=== PATIENT | female | born 1995 | race American Indian/Alaskan Native ===

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

== ENCOUNTER 2017-05-25 12:58 | Emergency (ER) | payer SELFPAY ==
[2017-05-25 14:07] VITALS: BP 118/75
[2017-05-25 15:47] LABS: Bacteria,Urine 1+ /HPF (Negative); Bilirubin,Urine NEG (Negative); Blood,Urine NEG (Negative); Ketones,Urine NEG (Negative); Leukocyte Esterase,Urine NEG (Negative); Mucus,Urine 3+ /HPF; Nitrite,Urine NEG (Negative); Protein,Urine <15 mg/dL mg/dL (Negative)
[2017-05-25] MEDS ORDERED: TRIPLE ANTIBIOTIC TP ONE (15:48)
[2017-05-25] MEDS ORDERED: ZOFRAN ODT PO ONE (16:21)
--- NOTE | 2017-05-25 16:21 | Emergency Department Report ---
HPI - General Chief Complaint: Abdominal Pain Time Seen by Provider: 05/25/17 16:13 - HPI HPI: This is a 21-year-old female with no prior history of present's ED complaining of abdominal cramping 3 days. Patient states abdominal pain is cramping in nature intermittently throughout the day. She denies radiation anywhere else. She states pain is localized to upper abdomen. Patient states she is able to tolerate foods and fluids. Patient is a history of irregular cycles. She denies vaginal bleeding vaginal discharge, fever, chest pain, dizziness or headache ED Past Medical Hx - Past Medical History Previous Medical History?: Yes Hx Hypertension: No Hx Congestive Heart Failure: No Hx Diabetes: No Hx Deep Vein Thrombosis: No Hx Renal Disease: No Hx Sickle Cell Disease: No Hx Seizures: No Hx Asthma: No Hx COPD: No Hx HIV: No Additional medical history: 37 weeks 04-13-2014 - Surgical History Past Surgical History?: No - Social History Smoking Status: Current Some Day Smoker Substance Use Type: Marijuana - Medications Home Medications: Home Medications Medication Instructions Recorded Confirmed Last Taken Type Ondansetron [Zofran ODT TAB] 8 mg PO TID #20 tab.rapdis 05/25/17 Unknown Rx Sulfamethoxazole/Trimethoprim 1 each PO BID #14 tablet 05/25/17 Unknown Rx [Bactrim DS TAB] ED Review of Systems ROS: Stated complaint: ABDOMINAL PAIN Other details as noted in HPI Constitutional: denies: chills, fever Eyes: denies: eye pain, eye discharge, vision change ENT: denies: ear pain, throat pain Respiratory: denies: cough, shortness of breath, wheezing Cardiovascular: denies: chest pain, palpitations Endocrine: no symptoms reported Gastrointestinal: denies: abdominal pain, nausea, diarrhea Genitourinary: denies: urgency, dysuria, discharge Musculoskeletal: denies: back pain, joint swelling, arthralgia Skin: denies: rash, lesions Neurological: denies: headache, weakness, paresthesias Psychiatric: denies: anxiety, depression Hematological/Lymphatic: denies: easy bleeding, easy bruising Physical Exam - Physical Exam Vital Signs: Vital Signs 05/25/17 14:03 Temperature 98.1 F Pulse Rate 73 Respiratory 18 Rate Blood Pressure 118/75 O2 Sat by Pulse 100 Oximetry Physical Exam: GENERAL: Alert and oriented x3, no apparent distress, Normal Gait, atraumatic. HEAD: Head is normocephalic and a-traumatic. MOUTH:Mouth is well hydrated and without lesions. Tonsils nonerythematous or swollen, Uvula midline, Tongue not elevated. Mucous membranes are moist. Posterior pharynx clear, no exudate or lesions. Patent airways. LUNGS: Symetrical with respiration, No wheezing, no rales or crackles, CTAB. HEART: S1, S2 present, regular rate and rhythm without murmur, no rubs, no gallops. Non tender to palpation ABDOMEN: No organomegaly was noted,Positive bowel sounds, soft, and non- distended. . Nontender to palpation on all Quadrants, NO CVA tenderness. BACK: Full range of motion, no spinal tenderness, nontender to palpation. EXTREMITIES/MUSCULOSKELETAL: No cyanosis, clubbing, rash, lesions or edema. Full ROM bilaterally. UE/LE Pulses 2+ bilaterally. NEUROLOGIC: The patient is cooperative with no focal neurologic deficits. SKIN: Warm and dry, No lesions, No ulceration or induration present. ED Course Vital Signs 05/25/17 14:03 Temperature 98.1 F Pulse Rate 73 Respiratory 18 Rate Blood Pressure 118/75 O2 Sat by Pulse 100 Oximetry ED Medical Decision Making - Medical Decision Making Patient is a 21-year-old female presents with UTI ED course: Patient received Zofran for nausea and and ED Urinalysis and urine test done urinalysis shows positive for bacteria and urine test negative sign discussed findings with the patient. Discussed the patient will follow up with primary care physician discussion patient to take antibiotics medication as prescribed. Discussed increased fluids, eat appropriately. Patient is in no acute distress. Critical care attestation.: If time is entered above; I have spent that time in minutes in the direct care of this critically ill patient, excluding procedure time. ED Disposition Clinical Impression: UTI (urinary tract infection) Qualifiers: Urinary tract infection type: acute cystitis Hematuria presence: without hematuria Qualified Code(s): N30.00 - Acute cystitis without hematuria Disposition: TO HOME OR SELFCARE Is pt being admited?: No Does the pt Need Aspirin: No Condition: Stable Instructions: Urinary Tract Infection in Women (ED), Abdominal Pain (ED) Prescriptions: Ondansetron [Zofran ODT TAB] 8 mg PO TID #20 tab.rapdis Sulfamethoxazole/Trimethoprim [Bactrim DS TAB] 1 each PO BID #14 tablet Referrals: PRIMARY CARE, [Primary Care Provider] - 3-5 Days LULI BOOTH MD [Referring] - 3-5 Days [facility] [Outside] - 3-5 Days [facility] [Outside] - 3-5 Days Forms: Accompanied Note, Work/School Release Form(ED) Time of Disposition: 16:37
== END 2017-05-25 16:56 | disposition home or self-care (01) ==
LOC: ED 12:58
DX: N30.00 Acute cystitis without hematuria (principal); F17.200 Nicotine dependence, unspecified, uncomplicated; F12.10 Cannabis abuse, uncomplicated
CPT/HCPCS: 36415; 81001; 84702; A6250; Q0162

== ENCOUNTER 2018-02-23 13:44 | Outpatient (CLI) | payer OTHER ==
[2018-02-23 14:22] VITALS: BP 101/64
== END 2018-02-23 15:00 | disposition home or self-care (01) ==
LOC: TRG 13:44
PROVIDERS: ATTEND Obstetrics & Gynecology
DX: O47.1 False labor at or after 37 completed weeks of gestation (principal); Z3A.37 37 weeks gestation of pregnancy
CPT/HCPCS: 59025

== ENCOUNTER 2018-03-16 14:43 | Outpatient (CLI) | payer OTHER ==
[2018-03-16 15:02] VITALS: BP 115/66
--- NOTE | 2018-03-16 17:09 | Ultrasound Report ---
FINAL REPORT EXAM: US OB BPP WO NON-STRESS HISTORY: WELL BEING, ANY TECHNIQUE: Ultrasound biophysical profile PRIORS: None. FINDINGS: Single live intrauterine gestation is present with heart rate of 136 beats per minute Biophysical profile was performed respiratory motion 2 Body movement 2 tone 2 Amniotic fluid volume 2 Total 04/12 The amniotic fluid index is 11 centimeters within normal limits. Deepest pocket measurement 4.09 centimeters Impression Normal biophysical profile 04/12
--- NOTE | 2018-03-16 17:11 | Ultrasound Report ---
FINAL REPORT EXAM: US OB LIMITED HISTORY: WELL BEING, ANY TECHNIQUE: . Ultrasound obstetrical transabdominal limited PRIORS: Comparison March 16, 2018 FINDINGS: Single live intrauterine gestation present in cephalic presentation. cardiac activity present with heart rate of 136 beats per minute. Amniotic fluid volume is within normal limits. Deepest pocket measurement 4.09 centimeters with amniotic fluid index of 11.0 centimeters IMPRESSION: Single live intrauterine gestation in cephalic presentation Normal amniotic fluid index
== END 2018-03-16 16:24 | disposition home or self-care (01) ==
LOC: TRG 14:43
PROVIDERS: ATTEND Obstetrics & Gynecology
DX: O47.1 False labor at or after 37 completed weeks of gestation (principal); Z3A.40 40 weeks gestation of pregnancy
CPT/HCPCS: 59025; 76815; 76819

== ENCOUNTER 2018-03-18 19:11 | Outpatient (CLI) | payer OTHER | END 2018-03-18 21:42 | disposition home or self-care (01) | LOC: TRG 19:11 | PROVIDERS: ATTEND Obstetrics & Gynecology | DX: O47.1 False labor at or after 37 completed weeks of gestation (principal); Z3A.40 40 weeks gestation of pregnancy | CPT/HCPCS: 59025 ==

== ENCOUNTER 2018-03-22 23:56 | Outpatient (CLI) | payer OTHER ==
[2018-03-23 00:11] VITALS: BP 109/64
--- NOTE | 2018-03-23 02:30 | Ultrasound Report ---
FINAL REPORT PROCEDURE: US OB BPP WO NON-STRESS TECHNIQUE: Sonographic evaluation for breathing, movement, tone, and amniotic fluid volume was performed. CPT 74853 HISTORY: well being. COMPARISON: Limited ultrasound dated same day and time. Ultrasounds dated 03/16/2018. FINDINGS: LMP: 06/16/2017. Clinical age: 40 weeks 0 days. EDC: 03/23/2018. heart rate: 132 beats per minute. Amniotic fluid volume: Normal-score 2. At least one vertical pocket > 2 cm or more in vertical axis. breathing: Normal-score 2. movement: Normal-score 2. tone: Normal. Score: 8 of 8. IMPRESSION: Normal biophysical profile.
--- NOTE | 2018-03-23 02:34 | Ultrasound Report ---
FINAL REPORT PROCEDURE: US OB LIMITED TECHNIQUE: Real-time limited sonographic examination was performed for evaluation of position, heartbeat, fluid volume with image documentation. CPT 39234 HISTORY: well being. COMPARISON: Please refer to biophysical profile ultrasound dated same day and time. Reference was also made to ultrasounds dated 03/16/2018. FINDINGS: MATERNAL LMP: 06/16/2017. Clinical age: 40 weeks 0 days. EDC: 03/23/2018. FETUS IUP: Single living intrauterine . Position: Was cephalic on prior study from 03/16/2018. Amniotic fluid volume: 13.3 cm. Heart rate and rhythm: 132 BPM, Regular . IMPRESSION: Single intrauterine , clinically 40 weeks 0 days with EDC of 03/23/2018. Cephalic presentation on study from 03/16/2018. Normal ANY. Heart rate 132 beats per minute.
== END 2018-03-23 01:46 | disposition home or self-care (01) ==
LOC: TRG 23:56
PROVIDERS: ATTEND Obstetrics & Gynecology
DX: O47.1 False labor at or after 37 completed weeks of gestation (principal); Z3A.40 40 weeks gestation of pregnancy
CPT/HCPCS: 59025; 76815; 76819

== ENCOUNTER 2018-03-25 12:55 | Inpatient (IN) | payer OTHER ==
[2018-03-25] MEDS ORDERED: LACTATED RINGERS 1,000 ML ONE (13:31)
[2018-03-25] MEDS ORDERED: ePHEDrine SULFATE IV PRN (14:03)
[2018-03-25] MEDS ORDERED: BRETHINE SUB-Q PRN (14:03)
--- NOTE | 2018-03-25 14:11 | History and Physical Report ---
History of Present Illness Date of examination: 03/25/18 Date of admission: 05/26/18 Chief complaint: Patient presents to L&D in active labor. History of present illness: 22 year old female presents to L&D in active labor. . EDC 03/23/18 by patient report. No records are available. Pt. states she received care at [facility]. She denies any complications with this . She denies any health problems or history of surgeries. She has had 2 previous vaginal deliveries. Patient states she takes a vitamin. Patient denies any allergies. US performed today due to no records available; term gestation reported by US today (38 weeks, 3 days with EDC of 04/05/18). labs redrawn today. 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 denies: smoking, alcohol abuse, IV drug use - Obstetrical History Expected Date of Delivery: 03/23/18 Actual Gestation: 40 Week(s) 2 Day(s) : 3 Para: 2 Hx # Term Pregnancies: 3 Number of Pregnancies: 0 Spontaneous Abortions: 0 Induced : 0 Number of Living Children: 2 Medications and Allergies Allergies Allergy/AdvReac Type Severity Reaction Status Date / Time No Known Allergies Allergy Verified 01/26/16 15:52 Home Medications Medication Instructions Recorded Confirmed Last Taken Type No Known Home Medications [No 03/16/18 03/25/18 Unknown History Reported Home Medications] Active Meds: Active Medications Ephedrine Sulfate (Ephedrine Sulfate) 10 mg IV Q2M PRN PRN Reason: Hypotension Fentanyl (Sublimaze) 100 mcg IV Q2H PRN PRN Reason: Labor Pain Ampicillin Sodium (Polycillin/Ns 2 Gm/100 Ml) 2 gm in 100 mls @ 100 mls/hr IV ONCE ONE; Protocol Stop: 03/25/18 15:59 Lactated Ringer's (Lactated Ringers) 1,000 mls @ 125 mls/hr IV DIRECT MANNY Oxytocin/Sodium Chloride (Pitocin/Ns 20 Unit/1000ml Drip) 20 units in 1,000 mls @ 125 mls/hr IV DIRECT MANNY Terbutaline Sulfate (Brethine) 0.25 mg SUB-Q ONCE PRN PRN Reason: Hyperstimulation/Hypertonicity Review of Systems All systems: negative (labor) - Vital Signs Vital signs: Vital Signs Pulse BP 110 H 123/77 03/25/18 13:13 03/25/18 13:13 Temp Pulse Resp BP Pulse Ox 92 H 123/77 99 03/25/18 14:11 03/25/18 13:13 03/25/18 14:11 - Physical Exam Breasts: Positive: deferred Cardiovascular: Regular rate, Normal S1, Normal S2 Lungs: Positive: Clear to auscultation Abdomen: Positive: normal appearance, soft. Negative: distention, tenderness, guarding, rigidity Genitourinary (Female): Positive: normal external genitalia, normal perenium. Negative: perineal/vulvar lesions Uterus: Positive: enlarged. Negative: tender Anus/Rectum: Positive: normal perianal skin Extremities: Positive: normal. Negative: tenderness, edema - Obstetrical Uterine Contraction Monitor Mode: External Cervical Dilatation: 5 Cervical Effacement Percentage: 80 station: -2 Uterine Contraction Pattern: Regular Uterine Contraction Intensity: Moderate Results Result Diagrams: 03/25/18 14:00 All other labs normal. Assessment and Plan A: at 40 weeks, 2 days gestation. GBS unknown. Labor. P: Admit. GBS prophylaxis. Anticipate .
[2018-03-25 14:38] LABS: Hematocrit 28.2 % (30.3-42.9); Hemoglobin 9.3 gm/dl (10.1-14.3); Mean Corpuscular HGB Conc 33 % (30-34); Mean Corpuscular Hemoglobin 27 pg (28-32); Mean Corpuscular Volume 82 fl (79-97); Platelet Count 204 K/mm3 (140-440); Red Blood Count 3.43 M/mm3 (3.65-5.03); Red Cell Distribution Width 15.4 % (13.2-15.2)
[2018-03-25] MEDS ORDERED: POLYCILLIN/NS 2 GM/100 ML 2 GM/100 ML BAG IV ONE (15:00)
[2018-03-25] MEDS: SUBLIMAZE IV PRN ×2 (15:58→19:52)
[2018-03-25] MEDS: LACTATED RINGERS 1,000 ML IV SCH ×2 (15:58→23:32)
[2018-03-25 18:26] LABS: Rubella IgG Antibody Immune (Immune)
[2018-03-25 18:29] LABS: Hepatitis C Virus Antibody Non-Reactive (NonReactive)
--- NOTE | 2018-03-25 19:50 | Ultrasound Report ---
FINAL REPORT EXAM: US OB FOLLOW UP HISTORY: Confirm gestational age COMPARISON: March 16, 2018. TECHNIQUE: Several real-time grayscale and color Doppler images were obtained. FINDINGS: Single live IUP. Estimated gestational age 38 weeks 3 days. Estimated delivery date April 05, 2018. On prior exam, estimated delivery date March 23, 2018. presentation cephalic. Placenta location right lateral. No placenta previa. heart rate 140 beats per minute. Estimated weight 3429 grams. BPD 9.6 centimeters 39 weeks 2 days. Head circumference 33.8 centimeters 38 weeks 6 days. Abdominal circumference 34.1 centimeters 38 weeks 0 days. Femoral length 7.4 centimeters 37 weeks 4 days. ANY 7.2 centimeters within normal limits. anatomic survey not performed. Limited evaluation of structures due to late gestational age. IMPRESSION: Single live IUP. Estimated gestational age 38 weeks 3 days. Estimated delivery date April 05, 2018. On prior exam, estimated delivery date March 23, 2018. No gross abnormality demonstrated. anatomic survey not performed. Limited evaluation of structures due to late gestational age.
[2018-03-25] MEDS: AMPICILLIN/NS 1 GM/50 ML 1 GM/50 ML BAG IV SCH ×2 (19:52→23:38)
[2018-03-25] MEDS ORDERED: PITOCin/NS 30 UNIT/500ML 30 UNITS/500 ML BAG IV SCH (22:00)
[2018-03-26] MEDS: SUBLIMAZE IV PRN (02:17)
[2018-03-26] MEDS: PITOCin/NS 20 UNIT/1000ML DRIP 20 UNITS/1,000 ML BAG IV SCH ×2 (03:40→07:21)
[2018-03-26] MEDS ORDERED: LANSINOH TP PRN (03:48)
[2018-03-26] MEDS ORDERED: TYLENOL PO PRN (03:48)
[2018-03-26] MEDS ORDERED: DULCOLAX PR PRN (03:48)
[2018-03-26] MEDS ORDERED: TUCKS PAD TP PRN (03:48)
[2018-03-26] MEDS ORDERED: MILK OF MAGNESIA PO PRN (03:48)
--- NOTE | 2018-03-26 03:59 | Procedure Note ---
OB Delivery Note - Delivery Date of Delivery: 03/26/18 Surgeon: YAA PACHECO Estimated blood loss: 200cc - Vaginal Delivery presentation: vertex Delivery position: OA Intrapartum events: meconium Delivery induction: none Delivery augmentation: rupture of membranes, pitocin Delivery monitor: external FHT, external uterine Route of delivery: Delivery placenta: spontaneous Delivery cord: nuchal cord Episiotomy: none Delivery laceration: none Anesthesia: none Delivery comments: of liveborn female weighing 7 lbs. 1 oz. with apgars of 8/9. Meconium stained amniotic fluid. Baby taken immediately to radiant warmer after for suctioning of meconium, then promptly returned to mom's chest for skin to skin. Spontaneous cry and respirations. Spontaneous delivery of intact placenta and membranes by obando mechanism. EBL 200 ml. Pitocin to IV fluids after delivery of placenta. No lacerations noted. Fundus firm and midline. Vaginal sweep negative. Sponge count correct.
[2018-03-26] MEDS ORDERED: SODIUM CHLORIDE FLUSH SYRINGE 10 ML IV PRN (04:00)
[2018-03-26] MEDS: MOTRIN PO SCH ×4 (05:53→23:36)
[2018-03-26] MEDS ORDERED: NORCO 5/325 PO PRN (09:40)
--- NOTE | 2018-03-26 09:40 | Progress Note ---
Assessment and Plan A: day of delivery. Afterbirth cramping. P: Anticipate discharge tomorrow afternoon or Tuesday morning. Subjective - Subjective Date of service: 03/26/18 Principal diagnosis: day of delivery S/P Interval history: day of delivery. Doing well. Patient reports small amount of lochia. Voiding without difficulty. Ambulating well. Tolerating a regular diet. Patient denies headache, cough, shortness of breath, chest pain, leg pain, or heavy bleeding. She reports afterbirth cramping. Patient reports: appetite normal, voiding normally, flatus, ambulating normally [place]: doing well Objective - Vital Signs Latest vital signs: Vital Signs Temp Pulse Resp BP BP Pulse Ox 03/26/18 06:50 77 104/59 03/26/18 05:49 82 125/66 03/26/18 04:47 86 146/66 03/26/18 04:31 81 124/64 03/26/18 04:16 93 H 127/58 03/26/18 04:01 89 125/59 03/26/18 03:46 101 H 137/65 03/26/18 00:25 106 H 122/63 03/25/18 23:37 100 H 130/60 03/25/18 22:17 108 H 129/73 03/25/18 19:51 104 H 119/72 03/25/18 19:46 98.8 F 104 H 18 119/72 03/25/18 15:21 103 H 99 03/25/18 15:16 97 H 99 03/25/18 15:11 101 H 100 03/25/18 15:06 97 H 99 03/25/18 15:01 100 H 99 03/25/18 14:56 92 H 99 03/25/18 14:51 101 H 100 03/25/18 14:46 94 H 99 03/25/18 14:41 87 99 03/25/18 14:36 95 H 99 03/25/18 14:31 98 H 100 03/25/18 14:26 98 H 99 03/25/18 14:21 94 H 99 03/25/18 14:16 93 H 99 03/25/18 14:11 92 H 99 03/25/18 14:06 91 H 99 03/25/18 14:01 100 H 99 03/25/18 13:56 97 H 98 03/25/18 13:51 106 H 99 03/25/18 13:46 106 H 99 03/25/18 13:41 100 H 99 03/25/18 13:13 110 H 123/77 Intake and Output 03/25/18 03/26/18 03/26/18 23:59 07:59 15:59 Intake Total 997.700 462.817 Balance 997.700 462.817 Intake: IV 997.700 462.817 AMPICILLIN/NS 1 GM/50 ML 50 1 gm In 50 ml @ 100 mls/ hr IV Q4HR MANNY Rx#: [id number] Lactated Ringers 1,000 ml 945.833 @ 125 mls/hr IV DIRECT MANNY Rx#:[id number] PITOCin/NS 20 UNIT/1000ML 460.417 DRIP 20 units In 1,000 ml @ 125 mls/hr IV DIRECT MANNY Rx#:[id number] PITOCin/NS 30 UNIT/500ML 1.867 2.4 30 units In 500 ml @ Per Protocol IV TITR MANNY Rx#: [id number] Other: Estimated Blood Loss 200 - Exam Breasts: Present: deferred Abdomen: Present: normal appearance, soft. Absent: distention, tenderness, guarding, rigidity Uterus: Present: normal, firm, fundal height below umbilicus Extremities: Present: normal. Absent: tenderness, edema - Labs Labs: Abnormal lab results 03/25/18 Range/Units 14:00 RBC 3.43 L (3.65-5.03) M/mm3 Hgb 9.3 L (10.1-14.3) gm/dl Hct 28.2 L (30.3-42.9) % MCH 27 L (28-32) pg RDW 15.4 H (13.2-15.2) %
[2018-03-26] MEDS: FEOSOL PO SCH ×2 (09:55→21:53)
[2018-03-26] MEDS ORDERED: ZOFRAN ODT PO PRN (15:20)
[2018-03-26 18:16] LABS: Hematocrit 23.4 % (30.3-42.9)
[2018-03-27] MEDS: MOTRIN PO SCH ×3 (06:02→18:10)
[2018-03-27] MEDS: FEOSOL PO SCH (10:02)
--- NOTE | 2018-03-27 14:51 | Progress Note ---
Subjective - Subjective Date of service: 03/27/18 Principal diagnosis: day 1 S/P Patient reports: appetite normal, voiding normally, pain well controlled, ambulating normally [place]: doing well, nursing well (botle and per pt) Objective - Vital Signs Latest vital signs: Vital Signs Temp Pulse Resp BP 03/27/18 08:13 97.8 F 73 20 114/58 03/27/18 00:00 97.8 F 80 18 113/62 03/26/18 17:58 18 03/26/18 15:46 98.7 F 75 18 120/64 Intake and Output 03/26/18 03/27/18 03/27/18 22:59 06:59 14:59 Intake Total 240 420 600 Output Total 250 Balance -10 420 600 Intake: Oral 240 420 600 Output: Urine 250 Void 250 Other: Total, Intake Amount 240 420 120 Total, Output Amount 250 # Voids Void 3 1 - Exam Narrative Exam: H&H 8.0/23.4. Denies dizziness. Desires discharge tomorrow. Breasts: Present: normal Cardiovascular: Present: Regular rate, No murmurs Lungs: Present: Clear to auscultation Abdomen: Present: normal appearance, soft, normal bowel sounds Uterus: Present: normal, firm, fundal height below umbilicus Extremities: Present: normal - Labs Labs: Abnormal lab results 03/26/18 Range/Units 17:47 Hgb 8.0 L (10.1-14.3) gm/dl Hct 23.4 L (30.3-42.9) %
[2018-03-27 17:58] VITALS: BP 116/59
--- NOTE | 2018-03-27 20:44 | Discharge Summary ---
Providers - Providers Date of Admission: 03/25/18 18:12 Date of discharge: 03/27/18 Attending physician: JUDD VÁSQUEZ Primary care physician: JUDD VÁSQUEZ Hospitalization Reason for admission: active labor Delivery: Episiotomy: none Laceration: none Incision: normal Other procedures: none complications: none Discharge diagnosis: IUP at term delivered [place] baby: female Condition at discharge: Good Disposition: DC-01 TO HOME OR SELFCARE Plan - Provider Discharge Summary Activity: routine, no sex for 6 weeks, no strenuous exercise Diet: routine Instructions: routine Additional instructions: [] Smoking cessation referral if applicable(refer to patient education folder for contact #) [] Refer to [facility]'s [facility] Booklet Call your doctor immediately for: * Fever > 100.5 * Heavy vaginal bleeding ( >1 pad per hour) * Severe persistent headache * Shortness of breath * Reddened, hot, painful area to leg or breast * Drainage or odor from incision. * Keep incision clean and dry at all times and follow doctor's instructions regarding bathing/showering - Follow up plan Follow up: JUDD VÁSQUEZ MD [Primary Care Provider] - 6 Weeks
== END 2018-03-27 22:30 | disposition home or self-care (01) | DRG 775 ==
LOC: TRG 12:55 → LD 18:12 → OB 03-26 07:35
PROVIDERS: ADMIT Obstetrics & Gynecology; ATTEND Obstetrics & Gynecology
PROC: 10E0XZZ Delivery of Products of Conception, External Approach (ICD-10-PCS; principal; 2018-03-26)
PROC: 30233S1 Transfusion of Nonautologous Globulin into Peripheral Vein, Percutaneous Approach (ICD-10-PCS; 2018-03-27)
DX: O77.0 Labor and delivery complicated by meconium in amniotic fluid (principal); Z3A.40 40 weeks gestation of pregnancy; Z37.0 Single live birth; O69.81X0 Labor and delivery complicated by cord around neck, without compression, not applicable or unspecified
CPT/HCPCS: 36415; 76816; 83036; 85014; 85018; 85027; 85461; 86592; 86706; 86762; 86803; 86850; 86900; 86901; 87806; 99211; G0463; J0290; J2590; J2790; J3010; J7120; Q0162

== ENCOUNTER 2018-11-04 14:52 | Emergency (ER) | payer MEDICAID ==
[2018-11-04 14:58] VITALS: BP 112/64
[2018-11-04 15:18] LABS: HCG Qualitative,Urine Positive (Negative)
[2018-11-04 15:20] LABS: Bilirubin,Urine NEG (Negative); Blood,Urine NEG (Negative); Color,Urine Yellow (Yellow); Mucus,Urine FEW /HPF
--- NOTE | 2018-11-04 15:21 | Emergency Department Report ---
Blank Doc - Documentation Documentation: reports pelvic pain and poitive home preg. no nvd, vaginal bleeding. reports v aginal discharge. LMP 2 mos ao PE ABD: mild TTP suprapubic area his initial assessment diagnostic orders/clinical plan/treatment (s) is/Are subject change based on patient's health status, clinical progression and re- assessment by fellow clinical providers in the ED. Further treatment and work-up at subsequent clinical providers discetion. Patient/guardians urged not to elope from s their condition may be serious if not clinically assessed and managed. Inital order include:labs, US, pelvic
[2018-11-04 15:50] LABS: Basophils % (Auto) 0.2 % (0.0-1.8); Eosinophils % (Auto) 0.7 % (0.0-4.3); Hematocrit 30.2 % (30.3-42.9); Hemoglobin 10.1 gm/dl (10.1-14.3); Lymphocytes # (Auto) 1.9 K/mm3 (1.2-5.4); Lymphocytes % (Auto) 29.1 % (13.4-35.0); Mean Corpuscular HGB Conc 34 % (30-34); Mean Corpuscular Volume 87 fl (79-97); Monocytes # (Auto) 0.6 K/mm3 (0.0-0.8); Monocytes % (Auto) 8.9 % (0.0-7.3); Platelet Count 210 K/mm3 (140-440); Red Blood Count 3.49 M/mm3 (3.65-5.03); Red Cell Distribution Width 14.3 % (13.2-15.2)
[2018-11-04 15:57] LABS: BUN/Creatinine Ratio 12; Blood Urea Nitrogen 6 mg/dL (7-17); Calcium 8.5 mg/dL (8.4-10.2); Hemolysis Index 4
--- NOTE | 2018-11-04 20:07 | Emergency Department Report ---
ED Abdominal Pain [facility] - General Chief Complaint: Abdominal Pain Stated Complaint: ABD PAIN Time Seen by Provider: 11/04/18 15:11 Source: patient Mode of arrival: Ambulatory Limitations: No Limitations - Related Data Home Medications Medication Instructions Recorded Confirmed Last Taken No Known Home Medications [No 03/16/18 03/25/18 Unknown Reported Home Medications] Allergies Allergy/AdvReac Type Severity Reaction Status Date / Time No Known Allergies Allergy Verified 01/26/16 15:52 ED Review of Systems ROS: Stated complaint: ABD PAIN Other details as noted in HPI ED Past Medical Hx - Past Medical History Previous Medical History?: No Hx Hypertension: No Hx Congestive Heart Failure: No Hx Diabetes: No Hx Deep Vein Thrombosis: No Hx Renal Disease: No Hx Sickle Cell Disease: No Hx Seizures: No Hx Asthma: No Hx COPD: No Hx HIV: No Additional medical history: 37 weeks 04-13-2014 - Surgical History Past Surgical History?: No - Social History Smoking Status: Never Smoker Substance Use Type: None - Medications Home Medications: Home Medications Medication Instructions Recorded Confirmed Last Taken Type No Known Home Medications [No 03/16/18 03/25/18 Unknown History Reported Home Medications] ED Physical Exam - General Limitations: No Limitations General appearance: alert, in no apparent distress, other (child very happy and playful, no distress) - Head Head exam: Present: atraumatic, normocephalic - Eye Eye exam: Present: normal appearance, PERRL Pupils: Present: normal accommodation - ENT ENT exam: Present: mucous membranes moist - Neck Neck exam: Present: normal inspection - Respiratory Respiratory exam: Present: normal lung sounds bilaterally. Absent: respiratory distress - Cardiovascular Cardiovascular Exam: Present: regular rate, normal rhythm. Absent: systolic murmur, diastolic murmur, rubs, gallop - GI/Abdominal GI/Abdominal exam: Present: soft, normal bowel sounds - Extremities Exam Extremities exam: Present: normal inspection - Back Exam Back exam: Present: normal inspection - Neurological Exam Neurological exam: Present: alert, oriented X3 - Psychiatric Psychiatric exam: Present: normal affect, normal mood - Skin Skin exam: Present: warm, dry, intact, normal color. Absent: rash ED Course Vital Signs 11/04/18 14:57 Temperature 97.8 F Pulse Rate 91 H Respiratory 18 Rate Blood Pressure 112/64 O2 Sat by Pulse 100 Oximetry ED Medical Decision Making - Lab Data Result diagrams: 11/04/18 15:30 11/04/18 15:30 Critical care attestation.: If time is entered above; I have spent that time in minutes in the direct care of this critically ill patient, excluding procedure time. ED Disposition Clinical Impression: Constipation Disposition: DC-01 TO HOME OR SELFCARE Is pt being admited?: No Does the pt Need Aspirin: No Condition: Stable Instructions: Abdominal Pain (ED), Constipation in Children (ED), High Fiber Diet (ED) Referrals: [facility] [Provider Group] - 3-5 Days
--- NOTE | 2018-11-04 20:07 | Emergency Department Report ---
ED Female HPI - General Chief complaint: Abdominal Pain Stated complaint: ABD PAIN Time Seen by Provider: 11/04/18 15:11 Source: patient Mode of arrival: Ambulatory Limitations: No Limitations - History of Present Illness Initial comments: Patient is a 3-year-old female patient is 0 who presents for abdominal cramping 2 days no vaginal bleeding no nausea vomiting no back pain . Has not seen an [employer]. Then exacerbating factors. MD Complaint: other (abd cramping 2 days ) Onset/Timin -: days(s) Radiation: LLQ, RLQ Severity: moderate Severity scale (0 -10): 4 Quality: cramping Consistency: intermittent Improves with: none Worsens with: none Are you Now?: Yes Last Menstrual Period: 08/01/18 EDC: 05/08/19 Associated Symptoms: abdominal pain (bilat LQ abd cramping ) - Related Data Sexually active: Yes : 4 Para: 3 A: 0 Previous Rx's Medication Instructions Recorded Last Taken Type Acetaminophen [Tylenol] 650 mg PO QID PRN #30 capsule 11/04/18 Unknown Rx Allergies Allergy/AdvReac Type Severity Reaction Status Date / Time No Known Allergies Allergy Verified 01/26/16 15:52 ED Review of Systems ROS: Stated complaint: ABD PAIN Other details as noted in HPI Constitutional: denies: chills, fever Eyes: denies: eye pain, eye discharge, vision change ENT: denies: ear pain, throat pain Respiratory: denies: cough, shortness of breath, wheezing Cardiovascular: denies: chest pain, palpitations Endocrine: no symptoms reported Gastrointestinal: abdominal pain (bialt lower quad cramping ). denies: nausea, vomiting, diarrhea, constipation, hematemesis, melena, hematochezia Genitourinary: denies: urgency, dysuria, frequency, hematuria, discharge, abnormal menses Musculoskeletal: denies: back pain, joint swelling, arthralgia Skin: denies: rash, lesions Neurological: denies: headache, weakness, paresthesias Psychiatric: denies: anxiety, depression Hematological/Lymphatic: denies: easy bleeding, easy bruising ED Past Medical Hx - Past Medical History Previous Medical History?: No Hx Hypertension: No Hx Congestive Heart Failure: No Hx Diabetes: No Hx Deep Vein Thrombosis: No Hx Renal Disease: No Hx Sickle Cell Disease: No Hx Seizures: No Hx Asthma: No Hx COPD: No Hx HIV: No Additional medical history: 37 weeks 04-13-2014 - Surgical History Past Surgical History?: No - Social History Smoking Status: Never Smoker Substance Use Type: None - Medications Home Medications: Home Medications Medication Instructions Recorded Confirmed Last Taken Type Acetaminophen [Tylenol] 650 mg PO QID PRN #30 capsule 11/04/18 Unknown Rx ED Physical Exam - General Limitations: No Limitations General appearance: alert, in no apparent distress - Head Head exam: Present: atraumatic, normocephalic - Eye Eye exam: Present: normal appearance - ENT ENT exam: Present: mucous membranes moist - Neck Neck exam: Present: normal inspection, full ROM - Respiratory Respiratory exam: Present: normal lung sounds bilaterally. Absent: respiratory distress, stridor, chest wall tenderness - Cardiovascular Cardiovascular Exam: Present: regular rate, normal rhythm. Absent: systolic murmur, diastolic murmur, rubs, gallop - GI/Abdominal GI/Abdominal exam: Present: soft, normal bowel sounds. Absent: distended, tenderness, guarding, rebound, rigid, bruit, hernia - Rectal Rectal exam: Present: deferred - External exam: Present: other (exam deferred per patient ) - Extremities Exam Extremities exam: Present: normal inspection, full ROM, normal capillary refill. Absent: tenderness, pedal edema, joint swelling, calf tenderness - Back Exam Back exam: Present: normal inspection, full ROM. Absent: tenderness, CVA tenderness (R), CVA tenderness (L), muscle spasm, rash noted - Neurological Exam Neurological exam: Present: alert, oriented X3, CN II-XII intact, normal gait - Psychiatric Psychiatric exam: Present: normal affect, normal mood - Skin Skin exam: Present: warm, dry, intact, normal color. Absent: rash ED Course Vital Signs 11/04/18 14:57 Temperature 97.8 F Pulse Rate 91 H Respiratory 18 Rate Blood Pressure 112/64 O2 Sat by Pulse 100 Oximetry ED Medical Decision Making - Lab Data Result diagrams: 11/04/18 15:30 11/04/18 15:30 Labs 11/04/18 11/04/18 11/04/18 15:03 15:30 15:30 WBC 6.5 RBC 3.49 L Hgb 10.1 Hct 30.2 L MCV 87 MCH 29 MCHC 34 RDW 14.3 Plt Count 210 Lymph % (Auto) 29.1 [place] % (Auto) 8.9 H Eos % (Auto) 0.7 Baso % (Auto) 0.2 Lymph # 1.9 [place] # 0.6 Eos # 0.0 Baso # 0.0 Seg Neutrophils % 61.1 Seg Neutrophils # 4.0 Sodium Potassium Chloride Carbon Dioxide Anion Gap BUN Creatinine Estimated GFR BUN/Creatinine Ratio Glucose Calcium HCG, Quant 07185 H Urine Color Yellow Urine Turbidity Cloudy Urine pH 6.0 Ur Specific [place] 1.024 Urine Protein 30 mg/dl Urine Glucose (UA) Neg Urine Ketones Neg Urine Blood Neg Urine Nitrite Neg Ur Reducing Substances Not Reportable Urine Bilirubin Neg Urine Ictotest Not Reportable Urine Urobilinogen 4.0 Ur Leukocyte Esterase Neg Urine WBC (Auto) 4.0 Urine RBC (Auto) 1.0 U Epithel Cells (Auto) 42.0 H Urine Mucus Few Urine HCG, Qual Positive A 11/04/18 15:30 WBC RBC Hgb Hct MCV MCH MCHC RDW Plt Count Lymph % (Auto) [place] % (Auto) Eos % (Auto) Baso % (Auto) Lymph # [place] # Eos # Baso # Seg Neutrophils % Seg Neutrophils # Sodium 136 L Potassium 3.9 Chloride 101.6 Carbon Dioxide 23 Anion Gap 15 BUN 6 L Creatinine 0.5 L Estimated GFR > 60 BUN/Creatinine Ratio 12 Glucose 75 Calcium 8.5 HCG, Quant Urine Color Urine Turbidity Urine pH Ur Specific [place] Urine Protein Urine Glucose (UA) Urine Ketones Urine Blood Urine Nitrite Ur Reducing Substances Urine Bilirubin Urine Ictotest Urine Urobilinogen Ur Leukocyte Esterase Urine WBC (Auto) Urine RBC (Auto) U Epithel Cells (Auto) Urine Mucus Urine HCG, Qual - Radiology Data Radiology results: report reviewed, image reviewed US OB: Single IUP 17 w, 5 days, - Medical Decision Making US ob: single IUP 17Weeks,5days , abd is improved pt is tolearating po intake without n/v there is no fever pt now denies vaginal discharge, plan: dc to home with follow up OBGYN in 2 days return to ed if symptoms worsen or return pt verbalized agreement and understanding of same. Critical care attestation.: If time is entered above; I have spent that time in minutes in the direct care of this critically ill patient, excluding procedure time. ED Disposition Clinical Impression: Positive test Abdominal pain during Qualifiers: Trimester: second trimester Qualified Code(s): O26.892 - Other specified related conditions, second trimester; R10.9 - Unspecified abdominal pain Disposition: TO HOME OR SELFCARE Is pt being admited?: No Does the pt Need Aspirin: No Condition: Stable Instructions: Abdominal Pain (ED), (ED) Prescriptions: Acetaminophen [Tylenol] 650 mg PO QID PRN #30 capsule PRN Reason: pain Referrals: JUDD VÁSQUEZ MD [Staff Physician] - 3-5 Days Forms: Work/School Release Form(ED) Time of Disposition: 20:13
--- NOTE | 2018-11-04 22:24 | Ultrasound Report ---
US OB >= 14 WEEKS FETUS CLINICAL INDICATION: Female, 23 years of age. abdominal pain in preg COMPARISON: None of this . TECHNIQUE: Several real-time grayscale and color Doppler images were obtained. Permanent images were secured for documentation. FINDINGS: Single live IUP. Estimated gestational age 17 weeks 6 days. Estimated delivery date April 08, 2019. Estimated weight 222 g.. heart rate 142 bpm. BPD 3.7 cm 17 weeks 2 days HC 14.6 cm 17 weeks 6 days AC 12.7 cm 18 weeks 2 days FL 2.6 cm 17 weeks 6 days position breech. Placental location anterior. The cervix is closed and measures 4.6 cm in lengt h. No placental previa. Grossly normal amount of amniotic fluid subjectively. Anatomic survey not performed. Bilateral ovaries are visualized. Left ovary measures 2.7 x 1.2 x 1.4 cm. Right ovary measures 3.7 x 1.7 x 2.3 cm. Within the right ovary measures 1.4 cm cystic structure which may reflect a corpus luteum. There is vascular flow to bilateral ovaries. IMPRESSION: Single live IUP. EGA 17 weeks 6 days. STEPHANIE April 08, 2019. Anatomic survey not performed. No gross abnormality demonstrated. This document is electronically signed by Mallory Hooks DO., November 04 2018 05:14:25 PM ET
== END 2018-11-04 20:45 | disposition home or self-care (01) ==
LOC: ED 14:52
DX: O26.892 Other specified pregnancy related conditions, second trimester (principal); R10.31 Right lower quadrant pain; R10.32 Left lower quadrant pain; Z3A.17 17 weeks gestation of pregnancy
CPT/HCPCS: 36415; 76805; 80048; 81001; 81025; 84702; 85025; 94640; 99284

== ENCOUNTER 2018-11-10 00:29 | Emergency (ER) | payer MEDICAID ==
[2018-11-10 00:39] VITALS: BP 103/64
[2018-11-10] MEDS ORDERED: NACL 0.9% 1000 ML 1,000 ML IV ONE (00:45)
[2018-11-10 01:18] LABS: Basophils % (Auto) 0.2 % (0.0-1.8); Eosinophils % (Auto) 0.3 % (0.0-4.3); Hemoglobin 10.3 gm/dl (10.1-14.3); Lymphocytes # (Auto) 1.9 K/mm3 (1.2-5.4); Lymphocytes % (Auto) 24.5 % (13.4-35.0); Mean Corpuscular HGB Conc 35 % (30-34); Mean Corpuscular Volume 87 fl (79-97); Monocytes # (Auto) 0.7 K/mm3 (0.0-0.8); Monocytes % (Auto) 8.5 % (0.0-7.3); Platelet Count 213 K/mm3 (140-440); Red Blood Count 3.46 M/mm3 (3.65-5.03); Red Cell Distribution Width 14.4 % (13.2-15.2)
[2018-11-10 01:42] LABS: Albumin 3.9 g/dL (3.9-5); BUN/Creatinine Ratio 20; Blood Urea Nitrogen 10 mg/dL (7-17); Calcium 8.9 mg/dL (8.4-10.2); Hemolysis Index 3
[2018-11-10 02:11] LABS: Alanine Aminotransferase < 5 units/L (7-56)
[2018-11-10] MEDS ORDERED: TYLENOL PO ONE (02:25)
--- NOTE | 2018-11-10 02:26 | Emergency Department Report ---
ED General Adult HPI - General Chief complaint: Abdominal Pain Stated complaint: ABD PAIN 17 WKS PREGGERS Time Seen by Provider: 11/10/18 02:05 Source: patient, family, RN notes reviewed, old records reviewed Mode of arrival: Ambulatory Limitations: No Limitations - History of Present Illness Initial comments: This is a 23-year-old female. The patient is reportedly G4, P3. Patient was seen in this emergency department one week ago for abdominal pain. Had an ultrasound at that time which demonstrated an intrauterine , 17 weeks and 6 days. Patient is going to follow up with Dr. Malik. Patient ate a hot dog earlier on yesterday, and developed upper abdominal discomfort and cramping. It does not radiate anywhere. It is now resolved. There is no lower abdominal pain. Mild nausea, no vomiting. No irritative or obstructive urinary symptoms. Defecating normally, passing gas normally. Patient reports compliance with her recently prescribed outpatient medications. -: Gradual, hour(s) Location: abdomen Radiation: non-radiation Severity scale (0 -10): 7 Quality: aching Consistency: intermittent Improves with: none Worsens with: none Associated Symptoms: denies other symptoms - Related Data Previous Rx's Medication Instructions Recorded Last Taken Type Acetaminophen [Tylenol] 650 mg PO QID PRN #30 capsule 11/04/18 Unknown Rx Vit No.130/Iron/Folic 1 each PO DAILY #90 tablet 11/04/18 Unknown Rx [ Tablet] Allergies Allergy/AdvReac Type Severity Reaction Status Date / Time No Known Allergies Allergy Verified 01/26/16 15:52 ED Review of Systems ROS: Stated complaint: ABD PAIN 17 WKS PREGGERS Other details as noted in HPI Constitutional: denies: fever, malaise Eyes: denies: vision change ENT: denies: epistaxis Respiratory: denies: cough Cardiovascular: denies: chest pain Gastrointestinal: abdominal pain. denies: vomiting Genitourinary: denies: dysuria Musculoskeletal: denies: arthralgia Skin: denies: lesions Neurological: denies: weakness Psychiatric: denies: anxiety ED Past Medical Hx - Past Medical History Hx Hypertension: No Hx Congestive Heart Failure: No Hx Diabetes: No Hx Deep Vein Thrombosis: No Hx Renal Disease: No Hx Sickle Cell Disease: No Hx Seizures: No Hx Asthma: No Hx COPD: No Hx HIV: No Additional medical history: 37 weeks 04-13-2014 - Social History Smoking Status: Never Smoker Substance Use Type: None - Medications Home Medications: Home Medications Medication Instructions Recorded Confirmed Last Taken Type Acetaminophen [Tylenol] 650 mg PO QID PRN #30 capsule 11/04/18 Unknown Rx Vit No.130/Iron/Folic 1 each PO DAILY #90 tablet 11/04/18 Unknown Rx [ Tablet] ED Physical Exam - General Limitations: No Limitations General appearance: alert, in no apparent distress - Head Head exam: Present: atraumatic, normocephalic - Eye Eye exam: Present: normal appearance, EOMI. Absent: nystagmus - ENT ENT exam: Present: normal exam, normal orophraynx, mucous membranes moist, normal external ear exam - Neck Neck exam: Present: normal inspection, full ROM. Absent: tenderness, meningismus - Respiratory Respiratory exam: Present: normal lung sounds bilaterally. Absent: respiratory distress - Cardiovascular Cardiovascular Exam: Present: regular rate, normal rhythm, normal heart sounds. Absent: bradycardia, tachycardia, irregular rhythm, systolic murmur, diastolic murmur, rubs, gallop - GI/Abdominal GI/Abdominal exam: Present: soft, other (there is no right lower quadrant tenderness. There is no right upper quadrant tenderness. There is no abdominal tenderness. The uterus is consistent for dates.). Absent: distended, tenderness, guarding, rebound, rigid, pulsatile mass - Extremities Exam Extremities exam: Present: normal inspection, full ROM, other (2+ pulses noted in the bilateral upper, lower extremities. Compartments soft. No long bony tenderness. The pelvis is stable.). Absent: pedal edema, joint swelling, calf tenderness - Back Exam Back exam: Present: normal inspection, full ROM. Absent: tenderness, CVA tenderness (R), paraspinal tenderness, vertebral tenderness - Neurological Exam Neurological exam: Present: alert, oriented X3, CN II-XII intact, normal gait, other (Extraocular movements intact. Tongue midline. No facial droop. Facial sensation intact to light touch in the V1, V2, V3 distribution bilaterally. 5 and 5 strength in 4 extremities.. Sensation is intact to light touch in 4 extremities.). Absent: motor sensory deficit - Psychiatric Psychiatric exam: Present: normal affect, normal mood - Skin Skin exam: Present: warm, dry, intact, normal color. Absent: rash ED Course Vital Signs 11/10/18 11/10/18 00:38 00:40 Temperature 97.9 F 97.9 F Pulse Rate 89 Respiratory 18 18 Rate Blood Pressure 103/64 O2 Sat by Pulse 99 Oximetry - Reevaluation(s) Reevaluation #1: 11/10/18 02:47 Differential diagnosis, including but not limited to: GERD, gastritis, hiatal hernia, round ligament pain, constipation, placental abruption, placenta previa Assessment and plan: 23-year-old female with acute on subacute abdominal pain. Patient had a workup in this department within the past week, which was essentially unremarkable. The patient is afebrile, with reassuring vital signs, playing on a cellular phone, appears to be in no acute distress, and has no abdo katya tenderness. Denies vaginal bleeding and urinary symptoms, highly doubt acute surgical condition. She is drinking apple juice at this time, and in no acute distress. We'll give her acetaminophen, and repeat an obstetrics ultrasound. Reevaluation #2: 11/10/18 05:09 Patient is in no acute distress. Ultrasound suggests normal ovarian blood flow, an 18 week intrauterine . The patient does not appear to have an emergent medical condition at this time. She is resting comfortably, on a cellular phone, and speaking in no acute distress. 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 ED Medical Decision Making - Lab Data Result diagrams: 11/10/18 00:58 11/10/18 00:58 Vital Signs 11/10/18 11/10/18 00:38 00:40 Temperature 97.9 F 97.9 F Pulse Rate 89 Respiratory 18 18 Rate Blood Pressure 103/64 O2 Sat by Pulse 99 Oximetry Lab Results 11/10/18 11/10/18 11/10/18 Range/Units 00:58 00:58 00:58 WBC 7.9 (4.5-11.0) K/mm3 RBC 3.46 L (3.65-5.03) M/mm3 Hgb 10.3 (10.1-14.3) gm/dl Hct 30.0 L (30.3-42.9) % MCV 87 (79-97) fl MCH 30 (28-32) pg MCHC 35 H (30-34) % RDW 14.4 (13.2-15.2) % Plt Count 213 (140-440) K/mm3 Lymph % (Auto) 24.5 (13.4-35.0) % [place] % (Auto) 8.5 H (0.0-7.3) % Eos % (Auto) 0.3 (0.0-4.3) % Baso % (Auto) 0.2 (0.0-1.8) % Lymph # 1.9 (1.2-5.4) K/mm3 [place] # 0.7 (0.0-0.8) K/mm3 Eos # 0.0 (0.0-0.4) K/mm3 Baso # 0.0 (0.0-0.1) K/mm3 Seg Neutrophils % 66.5 (40.0-70.0) % Seg Neutrophils # 5.3 (1.8-7.7) K/mm3 Sodium 135 L (137-145) mmol/L Potassium 3.8 (3.6-5.0) mmol/L Chloride 98.8 (98-107) mmol/L Carbon Dioxide 24 (22-30) mmol/L Anion Gap 16 mmol/L BUN 10 (7-17) mg/dL Creatinine 0.5 L (0.7-1.2) mg/dL Estimated GFR > 60 ml/min BUN/Creatinine Ratio 20 % Glucose 83 (65-100) mg/dL Calcium 8.9 (8.4-10.2) mg/dL Total Bilirubin < 0.20 (0.1-1.2) mg/dL AST 11 (5-40) units/L ALT < 5 L (7-56) units/L Alkaline Phosphatase 43 (35-129) units/L Total Protein 6.8 (6.3-8.2) g/dL Albumin 3.9 (3.9-5) g/dL Albumin/Globulin Ratio 1.3 % HCG, Qual Positive (Negative) - Radiology Data Radiology results: pending, report reviewed, image reviewed Print Report Referring Physician: ELENO KLEIN Patient Name: HANK CAMPBELL Date of : 1995 Sex: Female Report Date: 2018-11-10 Report Status: Finalized Findings [facility] [address] [place] [address] Ultrasound Report Signed Patient: HANK CAMPBELL MR#: [id number] : 1995 Acct:[id number] Age/Sex: 23 / F ADM Date: 11/10/18 Loc: ED Atte saw Dr: Ordering Physician: ELENO KLEIN MD Date of Service: 11/10/18 Procedure(s): US OB >= 14 weeks Fetus Accession Number(s): [id number] cc: ELENO KLEIN MD PROCEDURE: US OB >= 14 WEEKS FETUS TECHNIQUE: Real-time limited sonographic examination was performed for evaluation of placenta for each fetus with image documentation (1 or more fetuses). HISTORY: abd pain COMPARISONS: None FINDINGS: MATERNAL Uterus: Within normal limits Cervix length:, 3.6 cm. Internal Os: closed FETUS IUP: Single living intrauterine Position: Cephalic Placental position: Anterior, without previa. Amniotic fluid volume: Normal Heart rate and rhythm: 141 BPM, Regular anatomic survey: Not performed MEASUREMENTS BPD: 4 cm corresponding to 18 weeks HC: 15.7 cm corresponding 18 weeks 1 day AC: 12.1 cm corresponds to 17 weeks and 6 days FL: 2.7 cm corresponding to 18 weeks Mean Gestational Age (composite criteria): 18 weeks . Ratio biometry: Normal . Estimated Weight: 217 grams +/- grams. ounces +/- .ounces. percentile. Interval growth: Appropriate Estimated Due Date (earliest scan): 04/13/2019 Duplex Doppler: Normal. IMPRESSION: 1. Single living intrauterine gestation at approximately 18 weeks 2. EDC by US 04/13/2019 3. There is normal bilateral ovarian blood flow. This document is electronically signed by Robert Wright MD., November 10 2018 04:40:48 AM ET T ranscribed By: CO Dictated By: ROBERT WRIGHT MD Electronically Authenticated By: ROBERT WRIGHT MD Signed Date/Time: 11/10/18 0443 DD/ TD/TT: 11/10/18 0321 Critical care attestation.: If time is entered above; I have spent that time in minutes in the direct care of this critically ill patient, excluding procedure time. ED Disposition Clinical Impression: Abdominal pain during Disposition: DC-01 TO HOME OR SELFCARE Is pt being admited?: No Does the pt Need Aspirin: No Condition: Stable Instructions: Abdominal Pain (ED) Additional Instructions: Continue outpatient medications. Follow-up with your [employer]AIL [employer] SALES COUNTER MANAGER doctor within the next week for continued routine outpatient care. Advance diet as tolerated, avoid consumption of Motrin, ibuprofen, Naprosyn, Aleve, avoid consumption of heavy, spicy foods. Return to the emergency room right away with new, worsening or different symptoms. Referrals: JUDD MALIK MD [Staff Physician] - 3-5 Days [facility] [Provider Group] - 3-5 Days [facility] [Provider Group] - 3-5 Days [facility] [Provider Group] - 3-5 Days
[2018-11-10 02:56] LABS: Bilirubin,Urine NEG (Negative); Blood,Urine NEG (Negative); Color,Urine Yellow (Yellow); Mucus,Urine FEW /HPF; Protein,Urine <15 mg/dL mg/dL (Negative)
--- NOTE | 2018-11-10 04:43 | Ultrasound Report ---
PROCEDURE: US OB >= 14 WEEKS FETUS TECHNIQUE: Real-time limited sonographic examination was performed for evaluation of placenta for ea ch fetus with image documentation (1 or more fetuses). HISTORY: abd pain COMPARISONS: None FINDINGS: MATERNAL Uterus: Within normal limits Cervix length:, 3.6 cm. Internal Os: closed FETUS IUP: Single living intrauterine Position: Cephalic Placental position: Anterior, without previa. Amniotic fluid volume: Normal Heart rate and rhythm: 141 BPM, Regular anatomic survey: Not performed MEASUREMENTS BPD: 4 cm corresponding to 18 weeks HC: 15.7 cm corresponding 18 weeks 1 day AC: 12.1 cm corresponds to 17 weeks and 6 days FL: 2.7 cm corresponding to 18 weeks Mean Gestational Age (composite criteria): 18 weeks . Ratio biometry: Normal . Estimated Weight: 217 grams +/- grams. ounces +/- .ounces. percentile. Interval growth: Appropriate Estimated Due Date (earliest scan): 04/13/2019 Duplex Doppler: Normal. IMPRESSION: 1. Single living intrauterine gestation at approximately 18 weeks 2. EDC by US 04/13/2019 3. There is normal bilateral ovarian blood flow. This document is electronically signed by Robert Lopes MD., November 10 2018 04:40:48 AM ET
== END 2018-11-10 05:35 | disposition home or self-care (01) ==
LOC: ED 00:29
DX: O26.892 Other specified pregnancy related conditions, second trimester (principal); R10.9 Unspecified abdominal pain; Z3A.17 17 weeks gestation of pregnancy
CPT/HCPCS: 36415; 76805; 80053; 81001; 84703; 85025

== ENCOUNTER 2019-01-16 21:57 | Outpatient (CLI) | payer MEDICAID ==
--- NOTE | 2019-01-16 22:41 | Emergency Department Report ---
Chief Complaint: Abdominal Pain Time Seen by Provider: 01/16/19 22:36 - HPI History of Present Illness: This is a 23 y.o. female that reports to the ER with abdominal pain. 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 LMP 06/24/2019, A0. CC: diffuse abdominal pain and low back pain Denies vaginal bleeding or vaginal discharge - Exam Vital Signs: Vital Signs 01/16/19 21:01 Pulse Rate 90 Blood Pressure 103/56 MSE screening note: Focused history and physical exam performed. Due to findings the following was ordered: labs and OB US ED Disposition for MSE Condition: Stable Referrals: KEVEN GALEANA MD [Referring] - 7 Days
[2019-01-16 23:35] LABS: Bilirubin,Urine NEG (Negative); Blood,Urine NEG (Negative); Color,Urine Yellow (Yellow); Mucus,Urine FEW /HPF; Protein,Urine <15 mg/dL mg/dL (Negative); RBC,Urine < 1.0 /HPF (0.0-6.0)
--- NOTE | 2019-01-17 01:22 | Ultrasound Report ---
PROCEDURE: US OB >= 14 WEEKS FETUS TECHNIQUE: Real-time limited sonographic examination was performed for evaluation of placenta for ea ch fetus with image documentation (1 or more fetuses). HISTORY: abdominal pain, , 21 weeks? COMPARISONS: 11/10/2018 FINDINGS: MATERNAL Uterus: Within normal limits Cervix length:, 3.6 cm. Internal Os: closed FETUS IUP: Single living intrauterine Position: Cephalic Placental position: Anterior, without previa. Amniotic fluid volume: Normal Heart rate and rhythm: 144 BPM, Regular anatomic survey: Normal MEASUREMENTS BPD: 6.5 cm corresponding to 26 weeks and 2 days HC: 24.9 cm corresponding to 27 weeks AC: 22.1 cm corresponding to 26 weeks and 4 days FL: 5.2 cm corresponding to 27 weeks and 5 days Mean Gestational Age (composite criteria): 26 weeks and 6 days . Ratio biometry: Normal . Estimated Weight: 1010 grams +/- grams. ounces +/- .ounces. percentile. Interval growth: Appropriate Estimated Due Date (earliest scan): 04/19/2019 Duplex Doppler: Normal. IMPRESSION: 1. Single living intrauterine gestation at approximately 26 weeks and 6 days 2. EDC by US 04/19/2019 This document is electronically signed by Robert Lopes MD., Jan 17 2019 01:20:01 AM ET
--- NOTE | 2019-01-17 01:29 | Emergency Department Report ---
ED HPI - General Chief complaint: Abdominal Pain Time Seen by Provider: 01/16/19 22:36 Source: patient Mode of arrival: Ambulatory Limitations: No Limitations - History of Present Illness Initial comments: 23 yo female presents to the hospital complaining of lower abdominal pressure since 6pm. Patient is currently with LMP 06/24/2018. No care. Lower abdominal pain described as intermittent pressure radiating to the back reading 8/10 in intensity. No aggravating or relieving factors reported. She states that it does not feel like contractions. Patient denies dysuria, vaginal bleeding, or vaginal discharge. Patient does feel movement. Based on her LMP patient 29 weeks 4 days . - Related Data Previous Rx's Medication Instructions Recorded Last Taken Type Acetaminophen [Tylenol] 650 mg PO QID PRN #30 capsule 11/04/18 Unknown Rx Vit No.130/Iron/Folic 1 each PO DAILY #90 tablet 11/04/18 Unknown Rx [ Tablet] Allergies Allergy/AdvReac Type Severity Reaction Status Date / Time No Known Allergies Allergy Verified 01/26/16 15:52 ED Review of Systems ROS: Stated complaint: Other details as noted in HPI Comment: All other systems reviewed and negative ED Past Medical Hx - Past Medical History Previous Medical History?: No Hx Hypertension: No Hx Congestive Heart Failure: No Hx Diabetes: No Hx Deep Vein Thrombosis: No Hx Renal Disease: No Hx Sickle Cell Disease: No Hx Seizures: No Hx Asthma: No Hx COPD: No Hx HIV: No Additional medical history: 37 weeks 04-13-2014 - Surgical History Past Surgical History?: No - Social History Smoking Status: Former Smoker Substance Use Type: None - Medications Home Medications: Home Medications Medication Instructions Recorded Confirmed Last Taken Type Acetaminophen [Tylenol] 650 mg PO QID PRN #30 capsule 11/04/18 Unknown Rx Vit No.130/Iron/Folic 1 each PO DAILY #90 tablet 11/04/18 Unknown Rx [ Tablet] ED Physical Exam - General Limitations: No Limitations - Other Other exam information: General: No limitations, patient is alert in no acute distress Head exam: Atraumatic, normocephalic Eyes exam: Normal appearance, pupils equal reactive to light, extraocular movements intact ENT: Moist mucous membrane, normal oropharynx Neck exam: Normal inspection, full range of motion, no meningismus nontender Respiratory exam: Clear to auscultation bilateral, no wheezes, rales, crackles Cardiovascular: Normal rate and rhythm, normal heart sounds Abdomen: Soft, nondistended, abd, with normal bowel sounds, no rebound, or guarding Extremity: Full range of motion normal inspection no deformity Back: Normal Inspection, full range of motion, no tenderness Neurologic: Alert, oriented x3, cranial nerves intact, no motor or sensory deficit Psychiatric: normal affect, normal mood Skin: Warm, dry, intact ED Course Vital Signs 01/16/19 01/16/19 01/16/19 21:01 23:12 23:52 Temperature 98.4 F 98.2 F Pulse Rate 90 100 H 81 Respiratory 18 18 Rate Blood Pressure 103/56 118/72 Blood Pressure 110/64 [Left] O2 Sat by Pulse 100 99 Oximetry - Consultations Consultation #1: 01/17/19 01:48 Dr. Westbrook on-call accepts patient for transfer to labor and delivery for further work ED Medical Decision Making - Radiology Data Radiology results: report reviewed PROCEDURE: US OB >= 14 WEEKS FETUS TECHNIQUE: Real-time limited sonographic examination was performed for ev aluation of placenta for each fetus with image documentation (1 or more fetuses). HISTORY: abdominal pain, , 21 weeks? COMPARISONS: 11/10/2018 FINDINGS: MATERNAL Uterus: Within normal limits Cervix length:, 3.6 cm. Internal Os: closed FETUS IUP: Single living intrauterine Position: Cephalic Placental position: Anterior, without previa. Amniotic fluid volume: Normal Heart rate and rhythm: 144 BPM, Regular anatomic survey: Normal MEASUREMENTS BPD: 6.5 cm corresponding to 26 weeks and 2 days HC: 24.9 cm corresponding to 27 weeks AC: 22.1 cm corresponding to 26 weeks and 4 days FL: 5.2 cm corresponding to 27 weeks and 5 days Mean Gestational Age (composite criteria): 26 weeks and 6 days . Ratio biometry: Normal . Estimated Weight: 1010 grams +/- grams. ounces +/- .ounces. percentile. Interval growth: Appropriate Estimated Due Date (earliest scan): 04/19/2019 Duplex Doppler: Normal. IMPRESSION: 1. Single living intrauterine gestation at approximately 26 weeks and 6 days 2. EDC by US 04/19/2019 - Medical Decision Making Patient presents with pelvic pressure. Ultrasound reveals IUP greater than 20 weeks and therefore patient will be sent up to DEBT RECOVERY OFFICER for further evaluation. Patient is Rh- but there are no reports of vaginal bleeding and no signs of urinary tract infection. Case discussed with DEBT RECOVERY OFFICER doctor nutrition associate Dr. Westbrook and patient will be transferred to labor and delivery - Differential Diagnosis premature contractions, UTI, round ligament pain, ectopic Critical Care Time: No Critical care attestation.: If time is entered above; I have spent that time in minutes in the direct care of this critically ill patient, excluding procedure time. ED Disposition Clinical Impression: 26 weeks gestation of , Pelvic pressure in Disposition: DC-01 TO HOME OR SELFCARE Is pt being admited?: No Does the pt Need Aspirin: No Condition: Stable Instructions: (ED) Additional Instructions: Go directly to labor and delivery to be evaluated by DEBT RECOVERY OFFICER. Time of Disposition: 01:47 (discharged to labor and delivery)
[2019-01-17 02:20] VITALS: BP 110/54
== END 2019-01-17 03:32 | disposition home or self-care (01) ==
LOC: TRG 21:57 → ED 21:57 → TRG 21:57 → ED 01-17 02:03 → TRG 01-17 02:11
PROVIDERS: ATTEND Internal Medicine
DX: O26.893 Other specified pregnancy related conditions, third trimester (principal); R10.9 Unspecified abdominal pain; Z3A.30 30 weeks gestation of pregnancy
CPT/HCPCS: 36415; 59025; 76805; 81001; 84702; 86900; 86901; 99284

== ENCOUNTER 2019-03-06 19:44 | Outpatient (CLI) | payer MEDICAID ==
[2019-03-06 22:17] VITALS: BP 110/56
[2019-03-06] MEDS ORDERED: LACTATED RINGERS 500 ML IV SCH (23:00)
== END 2019-03-06 22:30 | disposition home or self-care (01) ==
LOC: TRG 19:44
PROVIDERS: ATTEND Obstetrics & Gynecology
DX: O47.03 False labor before 37 completed weeks of gestation, third trimester (principal); Z3A.36 36 weeks gestation of pregnancy
CPT/HCPCS: 59025

== ENCOUNTER 2019-03-18 23:35 | Inpatient (IN) | payer MEDICAID ==
[2019-03-18] MEDS ORDERED: LACTATED RINGERS 1,000 ML IV ONE (23:47)
[2019-03-19] MEDS ORDERED: XYLOCAINE 2% INFILTRATI ONE (01:07)
[2019-03-19] MEDS ORDERED: AMPICILLIN/NS 2 GM/100 ML 2 GM/100 ML BAG IV ONE ×2 (01:07→06:15)
[2019-03-19] MEDS ORDERED: BRETHINE SUB-Q PRN (01:07)
--- NOTE | 2019-03-19 01:15 | History and Physical Report ---
History of Present Illness Date of examination: 03/19/19 Date of admission: 03/19/19 00:50 Chief complaint: Contractions History of present illness: 23 year old female presents to L&D with complaint of contractions today. Patient denies leaking of fluid or vaginal bleeding. Patient reports active movement. Patient states she has been receiving regular care at [facility]. records are not available but these will be requested as soon as office opens this morning. LMP 06/24/18. EDC 03/31/19 per pt. report. uneventful per patient report. No labs are available so these have been drawn upon admission. 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 denies: alcohol abuse, prescription drug abuse, IV drug use - Obstetrical History Expected Date of Delivery: 03/31/19 Actual Gestation: 38 Week(s) 2 Day(s) : 4 Para: 3 Hx # Term Pregnancies: 3 Number of Pregnancies: 0 Spontaneous Abortions: 0 Induced : 0 Number of Living Children: 3 Medications and Allergies Allergies Allergy/AdvReac Type Severity Reaction Status Date / Time No Known Allergies Allergy Verified 03/18/19 23:42 Home Medications Medication Instructions Recorded Confirmed Last Taken Type Vit No.130/Iron/Folic 1 each PO DAILY #90 tablet 11/04/18 03/18/19 03/18/19 Rx [ Tablet] Active Meds: Active Medications Ephedrine Sulfate (Ephedrine Sulfate) 10 mg IV Q2M PRN PRN Reason: Hypotension Oxytocin/Sodium Chloride (Pitocin/Ns 20 Unit/1000ml Drip) 20 units in 1,000 mls @ 125 mls/hr IV DIRECT MANNY Lactated Ringer's (Lactated Ringers) 1,000 mls @ 125 mls/hr IV DIRECT MANNY Ampicillin Sodium (Ampicillin/Ns 2 Gm/100 Ml) 2 gm in 100 mls @ 100 mls/hr IV ONCE ONE; Protocol Stop: 03/19/19 02:06 Ampicillin Sodium (Ampicillin/Ns 1 Gm/50 Ml) 1 gm in 50 mls @ 100 mls/hr IV Q4HR MANNY; Protocol Lidocaine (Xylocaine 2%) 20 ml INFILTRATI ONCE ONE Stop: 03/19/19 01:08 Terbutaline Sulfate (Brethine) 0.25 mg SUB-Q ONCE PRN PRN Reason: Hyperstimulation/Hypertonicity Review of Systems All systems: negative (contractions) - Vital Signs Vital signs: Vital Signs Resp 18 03/18/19 23:38 Temp Pulse Resp BP Pulse Ox 84 18 126/73 100 03/19/19 01:11 03/18/19 23:38 03/19/19 01:01 03/19/19 01:11 US: BPP 8/8 EFW 2272 grams EDC by US: 33 weeks, 4 days Cephalic presentation, anterior placenta ANY 7.3 cm - Physical Exam Abdomen: Positive: normal appearance, soft. Negative: distention, tenderness, guarding, rigidity Genitourinary (Female): Positive: normal external genitalia, normal perenium. Negative: perineal/vulvar lesions Vagina: Positive: normal moisture Uterus: Positive: enlarged. Negative: tender Anus/Rectum: Positive: normal perianal skin Extremities: Positive: normal. Negative: tenderness, edema - Obstetrical FHR: category 2 Uterine Contraction Monitor Mode: External Cervical Dilatation: 3 Cervical Effacement Percentage: 50 station: -4 Uterine Contraction Pattern: Irregular Uterine Contraction Intensity: Mild Results Result Diagrams: 03/19/19 00:00 All other labs normal. Assessment and Plan A: at 38 weeks, 2 days gestation. Labor. No records. Small for dates. P: Admit. GBS prophylaxis. US for BPP and ANY. Continuous EFM. Obtain records. Consulted with Dr. Fairbanks re: patient and US EDC differing from pt.'s stated EDC. Dr. Fairbanks states to observe patient and no need to try to stop patient's labor per MD.
[2019-03-19 01:23] LABS: Hematocrit 31.3 % (30.3-42.9); Hemoglobin 10.5 gm/dl (10.1-14.3); Mean Corpuscular HGB Conc 34 % (30-34); Mean Corpuscular Volume 85 fl (79-97); Platelet Count 165 K/mm3 (140-440); Red Blood Count 3.68 M/mm3 (3.65-5.03); Red Cell Distribution Width 13.7 % (13.2-15.2)
[2019-03-19 01:41] LABS: Hepatitis C Virus Antibody Non-Reactive (NonReactive)
[2019-03-19] MEDS ORDERED: PITOCin/NS 20 UNIT/1000ML DRIP 20 UNITS/1,000 ML BAG IV SCH (02:00)
[2019-03-19] MEDS: LACTATED RINGERS 1,000 ML IV SCH ×2 (02:15→14:00)
--- NOTE | 2019-03-19 02:36 | Ultrasound Report ---
US OB BPP wo non-stress, US OB follow up INDICATION / CLINICAL INFORMATION: wellbeing. COMPARISON: 01/16/2019 FINDINGS: Single intrauterine gestation with heart rate 138 bpm presentation is cephalic. The great 3 placenta is anterior and free of the os. The ANY is 7.3. measurements: BPD 8.1 equals 34 weeks 4 days . Circumference 30.2 equals 33 weeks 4 days Abdominal circumference 29.5 equals 33 weeks 3 days Femur length 6.8 equals 34 weeks 6 days Estimated body weight 2272 g IMPRESSION: 1. Single live intrauterine gestation with central gestational age 33 weeks 4 days. Signer Name: Wally Churchill MD Signed: 03/19/2019 2:31 AM Workstation Name: [id number]
[2019-03-19 03:21] LABS: Band Neutrophils # (Manual) 0.1 K/mm3; Basophils % (Manual) 0 % (0.0-1.8); Eosinophils % (Manual) 0 % (0.0-4.3); Total Cells Counted 100
[2019-03-19 03:23] LABS: Platelet Estimate Consistent w Auto; Poikilocytosis 1+; Tear Drop Cells Few
[2019-03-19] MEDS ORDERED: AMPICILLIN/NS 1 GM/50 ML 1 GM/50 ML BAG IV SCH (05:10)
[2019-03-19] MEDS: AMPICILLIN/NS 1 GM/50 ML 1 GM/50 ML BAG IV SCH ×2 (12:19→16:52)
--- NOTE | 2019-03-19 14:06 | Progress Note ---
Assessment and Plan - Patient Problems (1) 38 weeks gestation of Onset Date: 03/19/19 Current Visit: Yes Status: Acute Plan to address problem: A: IUP @ 38 2/7 weeks Size less than dates discrepancy Limited care P: Obtain [facility] consultation Doppler studies and Steroids per [facility] - if 33 weeks (2) Size of fetus inconsistent with dates in third trimester Onset Date: 03/19/19 Current Visit: Yes Status: Acute Subjective - Subjective Date of service: 03/19/19 Principal diagnosis: IUP @ 38 2/7 weeks per pt; 33 4/7 weeks by u/s Interval history: Pt is a 23 yo BF EDC 03/31/19; EGA 38 2/7 weeks by dates presented to L&D complaining of contractions which have subsequently spaced out with IV hydration. She said she received care at [facility], but no records could be found. An Ob u/s gives measurements suggesting an EGA 33 4/7 weeks; ANY 7.3cm; EFW 2272gms Patient reports: movement normal, no new complaints, no loss of fluid, no vaginal bleeding, no contractions Objective - Vital Signs Vital Signs: Vital Signs - 12hr 03/19/19 03/19/19 03/19/19 02:06 02:11 02:16 Temperature Pulse Rate 84 76 73 Respiratory Rate Blood Pressure O2 Sat by Pulse 97 100 99 Oximetry 03/19/19 03/19/19 03/19/19 02:21 02:26 02:31 Temperature Pulse Rate 82 71 79 Respiratory Rate Blood Pressure O2 Sat by Pulse 99 99 99 Oximetry 03/19/19 03/19/19 03/19/19 02:36 02:41 02:46 Temperature Pulse Rate 81 79 74 Respiratory Rate Blood Pressure O2 Sat by Pulse 99 99 98 Oximetry 03/19/19 03/19/19 03/19/19 02:51 02:56 03:01 Temperature Pulse Rate 83 80 76 Respiratory Rate Blood Pressure O2 Sat by Pulse 100 100 100 Oximetry 03/19/19 03/19/19 03/19/19 03:06 03:11 03:15 Temperature 96.5 F L Pulse Rate 78 84 Respiratory 20 Rate Blood Pressure O2 Sat by Pulse 100 100 Oximetry 03/19/19 03/19/19 03/19/19 03:16 03:21 03:26 Temperature Pulse Rate 72 83 78 Respiratory Rate Blood Pressure O2 Sat by Pulse 100 100 100 Oximetry 03/19/19 03/19/19 03/19/19 03:31 03:36 03:49 Temperature Pulse Rate 87 83 85 Respiratory Rate Blood Pressure O2 Sat by Pulse 100 99 99 Oximetry 03/19/19 03/19/19 03/19/19 03:52 03:54 03:59 Temperature Pulse Rate 85 95 H 87 Respiratory Rate Blood Pressure 110/61 O2 Sat by Pulse 98 98 Oximetry 03/19/19 03/19/19 03/19/19 04:04 04:09 04:14 Temperature Pulse Rate 87 81 80 Respiratory Rate Blood Pressure O2 Sat by Pulse 96 97 98 Oximetry 03/19/19 03/19/19 03/19/19 04:19 04:24 04:29 Temperature Pulse Rate 77 79 82 Respiratory Rate Blood Pressure O2 Sat by Pulse 98 98 98 Oximetry 03/19/19 03/19/19 03/19/19 04:34 04:39 04:44 Temperature Pulse Rate 77 74 84 Respiratory Rate Blood Pressure O2 Sat by Pulse 98 97 98 Oximetry 03/19/19 03/19/19 03/19/19 04:49 04:53 04:54 Temperature Pulse Rate 85 73 84 Respiratory Rate Blood Pressure 104/55 O2 Sat by Pulse 98 98 Oximetry 03/19/19 03/19/19 03/19/19 04:59 05:04 05:09 Temperature Pulse Rate 86 79 87 Respiratory Rate Blood Pressure O2 Sat by Pulse 98 97 97 Oximetry 03/19/19 03/19/19 03/19/19 05:14 05:19 05:24 Temperature Pulse Rate 82 86 85 Respiratory Rate Blood Pressure O2 Sat by Pulse 97 98 97 Oximetry 03/19/19 03/19/19 03/19/19 05:29 05:34 05:39 Temperature Pulse Rate 83 77 86 Respiratory Rate Blood Pressure O2 Sat by Pulse 97 97 97 Oximetry 03/19/19 03/19/19 03/19/19 05:44 05:49 05:53 Temperature Pulse Rate 75 75 75 Respiratory Rate Blood Pressure 103/60 O2 Sat by Pulse 97 99 Oximetry 03/19/19 03/19/19 03/19/19 05:54 05:59 06:04 Temperature Pulse Rate 80 87 76 Respiratory Rate Blood Pressure O2 Sat by Pulse 98 98 97 Oximetry 03/19/19 03/19/19 03/19/19 06:09 06:14 06:19 Temperature Pulse Rate 76 84 80 Respiratory Rate Blood Pressure O2 Sat by Pulse 98 97 98 Oximetry 03/19/19 03/19/19 03/19/19 06:24 06:29 06:34 Temperature Pulse Rate 82 79 84 Respiratory Rate Blood Pressure O2 Sat by Pulse 98 97 97 Oximetry 03/19/19 03/19/19 03/19/19 06:39 06:44 06:49 Temperature Pulse Rate 83 81 74 Respiratory Rate Blood Pressure O2 Sat by Pulse 97 97 97 Oximetry 03/19/19 03/19/19 03/19/19 06:53 06:54 06:59 Temperature Pulse Rate 74 75 73 Respiratory Rate Blood Pressure 97/52 O2 Sat by Pulse 97 97 Oximetry 03/19/19 03/19/19 03/19/19 07:04 07:09 07:13 Temperature 97.3 F L Pulse Rate 76 85 Respiratory 18 Rate Blood Pressure O2 Sat by Pulse 97 97 Oximetry 03/19/19 03/19/19 03/19/19 07:14 07:19 07:24 Temperature Pulse Rate 72 79 82 Respiratory Rate Blood Pressure O2 Sat by Pulse 98 97 97 Oximetry 03/19/19 03/19/19 03/19/19 07:29 07:34 07:39 Temperature Pulse Rate 71 78 82 Respiratory Rate Blood Pressure O2 Sat by Pulse 98 97 97 Oximetry 03/19/19 03/19/19 03/19/19 07:43 07:44 07:49 Temperature Pulse Rate 85 84 69 Respiratory Rate Blood Pressure O2 Sat by Pulse 89 96 99 Oximetry 03/19/19 03/19/19 03/19/19 07:53 07:54 08:58 Temperature 98.3 F Pulse Rate 71 75 Respiratory 18 Rate Blood Pressure 105/57 O2 Sat by Pulse 99 Oximetry 03/19/19 12:09 Temperature Pulse Rate 84 Respiratory Rate Blood Pressure 107/58 O2 Sat by Pulse Oximetry - Exam Abdomen: Present: normal appearance, soft Uterus: Present: normal FHR: category 1 Uterine Contraction Monitor Mode: External Uterine Contraction Pattern: Irregular Uterine Contraction Intensity: Mild - Labs Labs: Laboratory Results - last 24 hr 03/19/19 03/19/19 03/19/19 00:00 00:00 00:00 WBC 6.6 RBC 3.68 Hgb 10.5 Hct 31.3 MCV 85 MCH 29 MCHC 34 RDW 13.7 Plt Count 165 Add Manual Diff Complete Total Counted 100 Seg Neuts % (Manual) 65.0 Band Neutrophils % 1.0 Lymphocytes % (Manual) 27.0 Reactive Lymphs % (Man) 0 Monocytes % (Manual) 7.0 Eosinophils % (Manual) 0 Basophils % (Manual) 0 Metamyelocytes % 0 Myelocytes % 0 Promyelocytes % 0 Blast Cells % 0 Nucleated RBC % Not Reportable Seg Neutrophils # Man 4.3 Band Neutrophils # 0.1 Lymphocytes # (Manual) 1.8 Abs React Lymphs (Man) 0.0 Monocytes # (Manual) 0.5 Eosinophils # (Manual) 0.0 Basophils # (Manual) 0.0 Metamyelocytes # 0.0 Myelocytes # 0.0 Promyelocytes # 0.0 Blast Cells # 0.0 WBC Morphology Not Reportable Hypersegmented Neuts Not Reportable Hyposegmented Neuts Not Reportable Hypogranular Neuts Not Reportable Smudge Cells Not Reportable Toxic Granulation Not Reportable Toxic Vacuolation Not Reportable Dohle Bodies Not Reportable Pelger-Huet Anomaly Not Reportable Malissa Rods Not Reportable Platelet Estimate Consistent w auto Clumped Platelets Not Reportable Plt Clumps, EDTA Not Reportable Large Platelets Not Reportable Giant Platelets Not Reportable Platelet Satelliting Not Reportable Plt Morphology Comment Not Reportable RBC Morphology Not Reportable Dimorphic RBCs Not Reportable Polychromasia Not Reportable Hypochromasia Not Reportable Poikilocytosis 1+ Anisocytosis Not Reportable Microcytosis Not Reportable Macrocytosis Not Reportable Spherocytes Not Reportable Pappenheimer Bodies Not Reportable Sickle Cells Not Reportable Target Cells Not Reportable Tear Drop Cells Few Ovalocytes Not Reportable Helmet Cells Not Reportable [place] Bodies Not Reportable [place] Rings Not Reportable [place] Cells Not Reportable Bite Cells Not Reportable Crenated Cell Not Reportable Elliptocytes Not Reportable Acanthocytes (Spur) Not Reportable Rouleaux Not Reportable Hemoglobin C Crystals Not Reportable Schistocytes Not Reportable Malaria parasites Not Reportable Daren Bodies Not Reportable Hem Pathologist Commnt No RPR Hep Bs Antigen Non-reactive Hepatitis C Antibody Non-reactive HIV 1&2 Antibody Rapid HIV P24 Antigen Rubella IgG Antibody Immune Blood Type Antibody Screen 03/19/19 03/19/19 03/19/19 00:00 00:00 00:00 WBC RBC Hgb Hct MCV MCH MCHC RDW Plt Count Add Manual Diff Total Counted Seg Neuts % (Manual) Band Neutrophils % Lymphocytes % (Manual) Reactive Lymphs % (Man) Monocytes % (Manual) Eosinophils % (Manual) Basophils % (Manual) Metamyelocytes % Myelocytes % Promyelocytes % Blast Cells % Nucleated RBC % Seg Neutrophils # Man Band Neutrophils # Lymphocytes # (Manual) Abs React Lymphs (Man) Monocytes # (Manual) Eosinophils # (Manual) Basophils # (Manual) Metamyelocytes # Myelocytes # Promyelocytes # Blast Cells # WBC Morphology Hypersegmented Neuts Hyposegmented Neuts Hypogranular Neuts Smudge Cells Toxic Granulation Toxic Vacuolation Dohle Bodies Pelger-Huet Anomaly Malissa Rods Platelet Estimate Clumped Platelets Plt Clumps, EDTA Large Platelets Giant Platelets Platelet Satelliting Plt Morphology Comment RBC Morphology Dimorphic RBCs Polychromasia Hypochromasia Poikilocytosis Anisocytosis Microcytosis Macrocytosis Spherocytes Pappenheimer Bodies Sickle Cells Target Cells Tear Drop Cells Ovalocytes Helmet Cells [place]man-[place] Bodies [place] Rings [place] Cells Bite Cells Crenated Cell Elliptocytes Acanthocytes (Spur) Rouleaux Hemoglobin C Crystals Schistocytes Malaria parasites Daren Bodies Hem Pathologist Commnt RPR Nonreactive Hep Bs Antigen Hepatitis C Antibody HIV 1&2 Antibody Rapid Non react HIV P24 Antigen Non react Rubella IgG Antibody Blood Type B NEGATIVE Antibody Screen Negative 03/19/19 00:00 WBC RBC Hgb Hct MCV MCH MCHC RDW Plt Count Add Manual Diff Total Counted Seg Neuts % (Manual) Band Neutrophils % Lymphocytes % (Manual) Reactive Lymphs % (Man) Monocytes % (Manual) Eosinophils % (Manual) Basophils % (Manual) Metamyelocytes % Myelocytes % Promyelocytes % Blast Cells % Nucleated RBC % Seg Neutrophils # Man Band Neutrophils # Lymphocytes # (Manual) Abs React Lymphs (Man) Monocytes # (Manual) Eosinophils # (Manual) Basophils # (Manual) Metamyelocytes # Myelocytes # Promyelocytes # Blast Cells # WBC Morphology TNR Hypersegmented Neuts Hyposegmented Neuts Hypogranular Neuts Smudge Cells Toxic Granulation Toxic Vacuolation Dohle Bodies Pelger-Huet Anomaly Malissa Rods Platelet Estimate Clumped Platelets Plt Clumps, EDTA Large Platelets Giant Platelets Platelet Satelliting Plt Morphology Comment RBC Morphology Dimorphic RBCs Polychromasia Hypochromasia Poikilocytosis Anisocytosis Microcytosis Macrocytosis Spherocytes Pappenheimer Bodies Sickle Cells Target Cells Tear Drop Cells Ovalocytes Helmet Cells [place]man-[place] Bodies [place] Rings [place] Cells Bite Cells Crenated Cell Elliptocytes Acanthocytes (Spur) Rouleaux Hemoglobin C Crystals Schistocytes Malaria parasites Daren Bodies Hem Pathologist Commnt RPR Hep Bs Antigen Hepatitis C Antibody HIV 1&2 Antibody Rapid HIV P24 Antigen Rubella IgG Antibody Blood Type Antibody Screen
[2019-03-19] MEDS ORDERED: CELESTONE SOLUSPAN IM SCH (15:00)
--- NOTE | 2019-03-19 16:04 | Event Note ---
Date: 03/19/19 Came by to see patient but she was in [place]; there was question of the patients STEPHANIE as she voiced she had not had an US; there are multiple US in the EMR which of the earliest I see is in November when the patient was approx 17.6 week and the STEPHANIE was 04/08/19; this would mean that the pateitn is full term and most liekly IUGR; I have asked the US tech to place these numbers in the next report and we will also await a doppler; if the doppler were abn the patietn should be augmented and addionally the patietn should be allowed to labor and does not need tocolysis; at this time the patietn is still in [place] but appears to have FT with IUGR; I spoke with Dr Malik about the prior US STEPHANIE and the clinical recs.
--- NOTE | 2019-03-19 17:26 | Ultrasound Report ---
Umbilical cord Doppler INDICATION: IUGR EDC: 04/08/2019 FINDINGS: heart rate is 142 bpm. Free loop S/D ratios are as follows: 2.01, 2.5 and 2.24 with an average of 2.3. Waveform is normal wi th a persistent end-diastolic flow pattern Free loop resistive index: 0.5, 0.6, and 0.55 with an average of 0.55. Waveform appears normal with a persistent end-diastolic flow pattern. IMPRESSION: SD ratios and resistive indices are within normal range Signer Name: Wilfredo Diaz MD Signed: 03/19/2019 5:21 PM Workstation Name: [id number]
[2019-03-19] MEDS ORDERED: AMBIEN PO PRN (20:57)
[2019-03-19] MEDS ORDERED: TYLENOL PO PRN (20:57)
--- NOTE | 2019-03-20 08:10 | Discharge Summary ---
Providers - Providers Date of Admission: 03/19/19 00:50 Date of discharge: 03/20/19 Attending physician: JUDD VÁSQUEZ 03/19/19 14:01 Consult to Physician [CONS] Urgent Comment: Consulting Provider: VIRAJ POLLACK Physician Instructions: Reason For Exam: IUP @ 38 weeks Primary care physician: JUDD VÁSQUEZ Hospitalization Reason for admission: observation, labor Episiotomy: none Laceration: none Other procedures: none complications: none Discharge diagnosis: other (IUP @ 37 2/7 weeks; Prodromal labor) Pertinent studies: BPP 04/12; Normal Dopplers Hospital course: Pt is a 23 yo BF EDC 03/31/19; EGA 38 2/7 weeks by dates (based on LMP) presented to L&D complaining of contractions which have subsequently spaced out with IV hydration. She said she received care at [facility], but no records could be found because she only had her bloodwork done. An Ob u/s done 03/19/19 gives measurements suggesting an EGA 33 4/7 weeks; ANY 7.3cm; EFW 2272gms, but earlier Ob u/s done 11/04/18 @ 17 6/7 weeks give an EDC 04/08/19 making her 37 2/7 weeks today. She was observed overnight and having irregular contractions without cervical change, and thus was discharged to home with plans to follow up in the office in 2 days. Condition at discharge: Good Disposition: DC-01 TO HOME OR SELFCARE - Discharge Diagnoses (1) 38 weeks gestation of Status: Acute (2) Size of fetus inconsistent with dates in third trimester Status: Resolved Plan - Discharge Medications Prescriptions: Ferrous Sulfate [Feosol 325 MG tab] 325 mg PO BID #60 tablet Vit-Fe Fumar-FA [ Vitamin] 1 tab PO QDAY #30 tablet - Provider Discharge Summary Activity: routine, no sex for 6 weeks, no heavy lifting 4 weeks, no strenuous exercise Diet: routine Instructions: routine Additional instructions: [] Smoking cessation referral if applicable(refer to patient education folder for contact #) [] Refer to [facility]'s [facility] Booklet Call your doctor immediately for: * Fever > 100.5 * Heavy vaginal bleeding ( >1 pad per hour) * Severe persistent headache * Shortness of breath * Reddened, hot, painful area to leg or breast * Drainage or odor from incision. * Keep incision clean and dry at all times and follow doctor's instructions regarding bathing/showering - Follow up plan Follow up: JUDD VÁSQUEZ MD [Primary Care Provider] - 3 Days
[2019-03-20 08:43] VITALS: BP 108/57
== END 2019-03-20 09:15 | disposition home or self-care (01) | DRG 778 ==
LOC: TRG 23:35 → LD 03-19 00:50 → OBSVTOIN 03-19 00:50
PROVIDERS: ADMIT Obstetrics & Gynecology; ATTEND Obstetrics & Gynecology
DX: O60.03 Preterm labor without delivery, third trimester (principal); O36.5930 Maternal care for other known or suspected poor fetal growth, third trimester, not applicable or unspecified; Z3A.38 38 weeks gestation of pregnancy
CPT/HCPCS: 36415; 76816; 76819; 76820; 85007; 85025; 86592; 86706; 86762; 86803; 86850; 86900; 86901; 87116; 87806; G0378; J0290; J7120

== ENCOUNTER 2019-03-25 12:35 | Outpatient (CLI) | payer MEDICAID ==
[2019-03-25 14:21] VITALS: BP 113/58
--- NOTE | 2019-03-25 14:50 | Ultrasound Report ---
OB Limited ultrasound. History: glenn Comparison: Prior OB ultrasound, 03/19/2019 Procedure: Real time ultrasound was utilized to evaluate. Findings: A single intrauterine is identified in a cephalic presentation. Positive he art motion and movement is identified. heart rate is 137 bpm. Amniotic fluid volume is within normal limits with an index of 11.2 cm. Impression: Single living IUP in cephalic presentation. Signer Name: Dayana Otero MD Signed: 03/25/2019 2:46 PM Workstation Name: [id number]
--- NOTE | 2019-03-25 15:02 | Ultrasound Report ---
Biophysical profile FINDINGS: breathing, spontaneous motion, tone and amniotic fluid volume all appear normal and e ach with a score 2 for a total score of 8/8. heart rate is 137 bpm. Signer Name: Alex Andres MD Signed: 03/25/2019 2:58 PM Workstation Name: [id number]
== END 2019-03-25 14:45 | disposition home or self-care (01) ==
LOC: TRG 12:35
PROVIDERS: ATTEND Obstetrics & Gynecology
DX: O47.1 False labor at or after 37 completed weeks of gestation (principal); Z3A.38 38 weeks gestation of pregnancy
CPT/HCPCS: 59025; 76815; 76819

== ENCOUNTER 2019-03-25 19:37 | Outpatient (CLI) | payer MEDICAID ==
[2019-03-25 20:42] VITALS: BP 109/60
== END 2019-03-25 21:12 | disposition home or self-care (01) ==
LOC: TRG 19:37
PROVIDERS: ATTEND Obstetrics & Gynecology
DX: O47.1 False labor at or after 37 completed weeks of gestation (principal); Z3A.38 38 weeks gestation of pregnancy
CPT/HCPCS: 59025

== ENCOUNTER 2019-03-29 21:40 | Inpatient (IN) | payer MEDICAID ==
[2019-03-29] MEDS ORDERED: LACTATED RINGERS 1,000 ML IV ONE (23:07)
[2019-03-30] MEDS ORDERED: SUBLIMAZE IV PRN (01:30)
[2019-03-30] MEDS ORDERED: BRETHINE IVP PRN (01:30)
[2019-03-30] MEDS ORDERED: BRETHINE SUB-Q PRN (01:30)
[2019-03-30] MEDS ORDERED: MINERAL OIL PO PRN (01:30)
[2019-03-30] MEDS ORDERED: AMPICILLIN/NS 2 GM/100 ML 2 GM/100 ML BAG IV ONE ×2 (01:30→05:27)
[2019-03-30] MEDS ORDERED: XYLOCAINE 2% INFILTRATI ONE (01:30)
[2019-03-30] MEDS ORDERED: PITOCin/NS 20 UNIT/1000ML DRIP 20 UNITS/1,000 ML BAG IV SCH (02:00)
[2019-03-30] MEDS ORDERED: PITOCin/NS 30 UNIT/500ML 30 UNITS/500 ML BAG IV SCH ×2 (02:00)
[2019-03-30] MEDS ORDERED: LACTATED RINGERS 1,000 ML IV SCH (02:00)
--- NOTE | 2019-03-30 05:11 | History and Physical Report ---
History of Present Illness Date of examination: 03/30/19 Date of admission: 03/29/19 Chief complaint: Intense labor pains History of present illness: 23yo AA Fe , STEPHANIE 03/30/2019 ([place]), 40 weeks 0 days, presents via EMS with intense labor pains. Pt has received late care [facility] ([place], [place]) at 22 weeks with [facility] (records available and reviewed). Past History Past Medical History: no pertinent history Past Surgical History: no surgical history SYSTEM ADMIN History: herpes (Known Hx; Valtrex supression). denies: abnormal PAP smear, chlamydia, gonorrhea, hepatitis B, hepatitis C, HIV, syphilis, trichomonas Social history: no significant social history, single, lives with family, full code. denies: smoking, alcohol abuse, prescription drug abuse, IV drug use - Obstetrical History Expected Date of Delivery: 03/30/19 Actual Gestation: 40 Week(s) 0 Day(s) : 4 Para: 3 Hx # Term Pregnancies: 3 Number of Pregnancies: 0 Spontaneous Abortions: 0 Induced : 0 Number of Living Children: 3 #1 year: 2,014 Method of Delivery: Vaginal Complications: none #2 year: 2,017 Method of Delivery: Vaginal Complications: none #3 year: 2,018 Method of Delivery: Vaginal Complications: none Medications and Allergies Allergies Allergy/AdvReac Type Severity Reaction Status Date / Time No Known Allergies Allergy Verified 03/18/19 23:42 Home Medications Medication Instructions Recorded Confirmed Last Taken Type Vit No.130/Iron/Folic 1 each PO DAILY #90 tablet 11/04/18 03/18/19 03/18/19 Rx [ Tablet] Ferrous Sulfate [Feosol 325 MG tab] 325 mg PO BID #60 tablet 03/20/19 Unknown Rx Vit-Fe Fumar-FA [ 1 tab PO QDAY #30 tablet 03/20/19 Unknown Rx Vitamin] Active Meds: Active Medications Ephedrine Sulfate (Ephedrine Sulfate) 10 mg IV Q2M PRN PRN Reason: Hypotension Fentanyl (Sublimaze) 100 mcg IV Q2H PRN PRN Reason: Labor Pain Last Admin: 03/30/19 04:52 Dose: 100 mcg Documented by: Ampicillin Sodium (Ampicillin/Ns 1 Gm/50 Ml) 1 gm in 50 mls @ 100 mls/hr IV Q4HR [facility]; Protocol Lactated Ringer's (Lactated Ringers) 1,000 mls @ 125 mls/hr IV DIRECT MANNY Last Admin: 03/30/19 04:58 Dose: 125 mls/hr Documented by: Oxytocin/Sodium Chloride (Pitocin/Ns 20 Unit/1000ml Drip) 20 units in 1,000 mls @ 125 mls/hr IV DIRECT MANNY Oxytocin/Sodium Chloride (Pitocin/Ns 30 Unit/500ml) 30 units in 500 mls @ 1 mls/hr IV TITR MANNY; Protocol Oxytocin/Sodium Chloride (Pitocin/Ns 30 Unit/500ml) 30 units in 500 mls @ 1 mls/hr IV TITR MANNY; Protocol Mineral Oil (Mineral Oil) 30 ml PO QHS PRN PRN Reason: Constipation Terbutaline Sulfate (Brethine) 0.25 mg SUB-Q ONCE PRN PRN Reason: Hyperstimulation/Hypertonicity Terbutaline Sulfate (Brethine) 0.25 mg IVP ONCE PRN PRN Reason: Hyperstimulation/Hypertonicity Review of Systems Eyes: normal appearance Cardiovascular: no chest pain, no shortness of breath Respiratory: no shortness of breath Breasts: normal Gastrointestinal: abdominal pain, no nausea, no vomiting, no diarrhea, no constipation Genitourinary: contractions, no normal appearance, no leakage of fluid, no genital sores Integumentary: no rash, no sores, no lesions - Vital Signs Vital signs: Vital Signs Pulse BP 85 109/61 03/29/19 22:18 03/29/19 22:18 Temp Pulse Resp BP Pulse Ox 73 18 131/61 03/30/19 03:04 03/30/19 04:52 03/30/19 03:04 - Physical Exam Breasts: Positive: normal Cardiovascular: Regular rate, Normal S1, Normal S2, No murmurs Lungs: Positive: Clear to auscultation, Normal air movement Abdomen: Positive: normal appearance, soft, normal bowel sounds. Negative: distention Genitourinary (Female): Positive: normal external genitalia, normal perenium Vulva: both: normal Vagina: Positive: normal moisture Uterus: Positive: enlarged (Gravid) Anus/Rectum: Positive: normal perianal skin Extremities: Positive: normal Deep Tendon Reflex Grade: Normal +2 - Obstetrical FHR: category 1, category 2 Uterine Contraction Monitor Mode: External Cervical Dilatation: 5 (AROM, moderate clear fluid 03/30/19 @04:59) Cervical Effacement Percentage: 75 station: -2 Uterine Contraction Frequency (min): 1-3 Uterine Contraction Duration: 60-90 Uterine Tone Measurement Phase: Resting Uterine Contraction Intensity: Mild Results All other labs normal. Assessment and Plan A: Term IUP at 40w0d Category 2 tracing GBS Negative Labor P: Admit to L&D; Routine labor orders May have IV pain med/epidural PRN Anticipate
[2019-03-30] MEDS ORDERED: AMPICILLIN/NS 1 GM/50 ML 1 GM/50 ML BAG IV SCH (05:37)
[2019-03-30] MEDS ORDERED: PHENERGAN PO PRN (06:58)
[2019-03-30] MEDS ORDERED: NORCO 5/325 PO PRN (06:58)
[2019-03-30] MEDS ORDERED: BENADRYL PO PRN (06:58)
[2019-03-30] MEDS ORDERED: ZOFRAN IV PRN (06:58)
[2019-03-30] MEDS ORDERED: TUCKS PAD TP PRN (06:58)
[2019-03-30] MEDS ORDERED: LANSINOH TP PRN (06:58)
[2019-03-30] MEDS ORDERED: TYLENOL PO PRN (06:58)
[2019-03-30] MEDS ORDERED: SODIUM CHLORIDE FLUSH SYRINGE 10 ML IV NR (07:00)
--- NOTE | 2019-03-30 07:05 | Procedure Note ---
OB Delivery Note - Delivery Date of Delivery: 03/30/19 (06:48) Surgeon: ROSS PERALTA (ARA) Estimated blood loss: 100cc - Vaginal Delivery presentation: vertex Delivery position: OA Intrapartum events: none Delivery induction: none Delivery augmentation: rupture of membranes Delivery monitor: external FHT, external uterine Route of delivery: (06:48) Delivery placenta: spontaneous Delivery cord: nuchal cord (x1 tight), 3 umbilical vessels Delivery laceration: none Anesthesia: none Delivery comments: viable female BRUCE position, tight nuchal cord x1 delivered intact via somersault maneuver at 06:48 with body cord noted as well. Vigorous infant placed [id number] on mothers abdomen. Delayed cord clamping, then cut by pt mother with my guidance. Cord blood collected per protocol. Spontaneous obando delivery of intact placenta #V cord at 06:52. FF@U-2. no tears or lacerations. EBL 100cc. Infant and mother left in stable condition in L&D. - A at 1 minute: 9 at 5 minutes: 9 Gender: Female (2455 grams, 5lbs 7oz, 18")
[2019-03-30] MEDS: IBUPROFEN PO SCH ×3 (07:25→20:26)
[2019-03-30 09:10] LABS: Hematocrit 27.6 % (30.3-42.9); Hemoglobin 9.3 gm/dl (10.1-14.3); Mean Corpuscular HGB Conc 34 % (30-34); Mean Corpuscular Volume 85 fl (79-97); Platelet Count 150 K/mm3 (140-440); Red Blood Count 3.24 M/mm3 (3.65-5.03)
[2019-03-30] MEDS ORDERED: DULCOLAX PR PRN (10:00)
[2019-03-30 18:32] LABS: Hematocrit 25.6 % (30.3-42.9); Hemoglobin 8.5 gm/dl (10.1-14.3)
[2019-03-30] MEDS ORDERED: MILK OF MAGNESIA PO PRN (22:00)
[2019-03-31] MEDS: IBUPROFEN PO SCH ×4 (06:09→23:48)
[2019-03-31] MEDS: FEOSOL PO SCH ×2 (10:15→21:30)
--- NOTE | 2019-03-31 11:41 | Progress Note ---
Assessment and Plan A: day 1 S/P spontaneous vaginal delivery. Anemia secondary to and blood loss. P: Supplement with iron. Anticipate discharge tomorrow. Subjective - Subjective Date of service: 03/31/19 Principal diagnosis: day 1 S/P Interval history: day 1 S/P spontaneous vaginal delivery. Doing well. Patient reports small amount of lochia. Voiding without difficulty. Ambulating well. Tolerating a regular diet. Patient denies headache, chest pain, cough, shortness of breath, leg pain, abdominal pain, dizziness, nausea or vomiting, or heavy bleeding. Patient reports: appetite normal, voiding normally, pain well controlled, flatus, ambulating normally, no dizzy ambulation, no nauseated [place]: doing well Objective - Vital Signs Latest vital signs: Vital Signs Temp Pulse Resp BP Pulse Ox 03/31/19 07:41 98.0 F 67 18 113/71 99 03/31/19 01:16 98.0 F 77 18 115/57 96 03/30/19 17:22 97.7 F 73 16 114/65 95 Intake and Output 03/30/19 03/31/19 03/31/19 23:59 07:59 15:59 Intake Total 640 240 360 Output Total 450 Balance 190 240 360 Intake: Oral 540 240 240 Intake, Free Water 100 120 Output: Urine 450 Void 450 Other: Total, Intake Amount 240 240 240 Total, Output Amount 450 # Voids Void 1 1 1 - Exam Abdomen: Present: normal appearance, soft. Absent: distention, tenderness, guarding, rigidity Uterus: Present: normal, firm, fundal height below umbilicus. Absent: bogginess, tenderness Extremities: Present: normal. Absent: tenderness, edema - Labs Labs: Abnormal lab results 03/30/19 Range/Units 18:07 Hgb 8.5 L (10.1-14.3) gm/dl Hct 25.6 L (30.3-42.9) %
[2019-04-01] MEDS: FEOSOL PO SCH (10:23)
--- NOTE | 2019-04-01 11:40 | Progress Note ---
Assessment and Plan A: day 2 S/P spontaneous vaginal delivery. Anemia secondary to and blood loss. P: Discharge home today. Discussed with patient discharge instructions and warning signs in detail. Advised patient to continue taking her vitamins and iron supplements at home. Advised patient re: dietary sources of iron. Advised patient to avoid intercourse, lifting and heavy housework, and driving. Advised patient to follow up at [facility] in 6 weeks for exam. Symptoms of depression discussed with patient. Patient voiced understanding of all instructions. Subjective - Subjective Date of service: 04/01/19 Principal diagnosis: day 2 S/P Interval history: day 2 S/P spontaneous vaginal delivery. Doing well. Patient wants to be discharged home today. Patient reports small amount of lochia. Voiding without difficulty. Ambulating well. Tolerating a regular diet. Patient denies headache, chest pain, cough, shortness of breath, leg pain, abdominal pain, dizziness, nausea or vomiting, or heavy bleeding. Patient reports: appetite normal, voiding normally, pain well controlled, flatus, ambulating normally, no dizzy ambulation, no nauseated Ione: doing well Objective - Vital Signs Latest vital signs: Vital Signs Temp Pulse Resp BP Pulse Ox 04/01/19 08:42 98.9 F 85 18 111/61 98 03/31/19 23:38 98.1 F 72 20 113/70 94 03/31/19 16:16 98.5 F 83 18 119/69 95 Intake and Output 03/31/19 04/01/19 04/01/19 23:59 07:59 15:59 Intake Total 1560 240 360 Output Total 600 Balance 1560 240 -240 Intake: Oral 840 240 360 Intake, Free Water 720 Output: Urine 600 Void 600 Other: Total, Intake Amount 360 240 360 Total, Output Amount 600 # Voids Void 1 1 - Exam Abdomen: Present: normal appearance, soft. Absent: distention, tenderness, guarding, rigidity Uterus: Present: normal, firm, fundal height below umbilicus. Absent: bogginess, tenderness Extremities: Present: normal. Absent: tenderness, edema
[2019-04-01] MEDS: IBUPROFEN PO SCH ×2 (12:21→18:42)
--- NOTE | 2019-04-01 17:05 | Discharge Summary ---
Providers - Providers Date of Admission: 03/30/19 07:15 Date of discharge: 04/01/19 Attending physician: JUDD VÁSQUEZ 03/30/19 11:31 Consult to Case Management [CONS] Routine Services Needed at Discharge: [employer] Notified:: no Additional Physician Instructions: [facility] Needs housing and supplies for baby, such car seat ect... Primary care physician: JUDD VÁSQUEZ Hospitalization Reason for admission: active labor Delivery: Episiotomy: none Laceration: none Other procedures: none complications: none Discharge diagnosis: IUP at term delivered baby: female Pertinent studies: Labs Hospital course: Normal hospital course Condition at discharge: Good Disposition: DC-01 TO HOME OR SELFCARE - Discharge Diagnoses (1) Term delivered Status: Acute (2) Anemia due to blood loss Status: Acute Plan - Provider Discharge Summary Activity: routine, no sex for 6 weeks, no heavy lifting 4 weeks, no strenuous exercise Diet: routine Instructions: routine Additional instructions: Continue taking your vitamins and iron supplements at home. Call your doctor immediately for: * Fever > 100.5 * Heavy vaginal bleeding ( >1 pad per hour) * Severe persistent headache * Shortness of breath * Reddened, hot, painful area to leg or breast - Follow up plan Follow up: JUDD VÁSQUEZ MD [Primary Care Provider] - 6 Weeks
[2019-04-01] MEDS ORDERED: DEPO-PROVERA (CONTRACEPTION) IM ONE (17:59)
[2019-04-02 00:40] VITALS: BP 121/78
== END 2019-04-01 11:55 | disposition home or self-care (01) | DRG 775 ==
LOC: TRG 21:40 → LD 03-30 00:30 → TRG 03-30 07:14 → LD 03-30 07:15 → OB 03-30 10:45
PROVIDERS: ADMIT Obstetrics & Gynecology; ATTEND Obstetrics & Gynecology
PROC: 10E0XZZ Delivery of Products of Conception, External Approach (ICD-10-PCS; principal; 2019-03-30)
PROC: 3E0234Z Introduction of Serum, Toxoid and Vaccine into Muscle, Percutaneous Approach (ICD-10-PCS; 2019-03-31)
DX: O69.81X0 Labor and delivery complicated by cord around neck, without compression, not applicable or unspecified (principal); Z37.0 Single live birth; Z3A.40 40 weeks gestation of pregnancy; O90.81 Anemia of the puerperium; D62 Acute posthemorrhagic anemia
CPT/HCPCS: 36415; 59025; 76815; 76819; 85014; 85018; 85027; 85461; 86592; 86706; 86850; 86900; 86901; G0378; J0290; J1050; J2790; J3010; J7120

== ENCOUNTER 2020-09-19 13:55 | Emergency (ER) | payer SELFPAY ==
[2020-09-19 14:15] VITALS: BP 136/89
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
== END 2020-09-19 14:42 | disposition home or self-care (01) ==
LOC: ED 13:55
DX: S09.90XA Unspecified injury of head, initial encounter (principal); F17.200 Nicotine dependence, unspecified, uncomplicated; X58.XXXA Exposure to other specified factors, initial encounter; Y93.89 Activity, other specified; Y92.89 Other specified places as the place of occurrence of the external cause; Y99.8 Other external cause status
CPT/HCPCS: 99282